=== PATIENT | male | born 1970 | race African-American/Black ===

== ENCOUNTER 2017-03-01 18:57 | Inpatient (IN) | payer BC, MEDICAID, OTHER ==
[~2017-03-01] VITALS: Ht 167.6 cm; Wt 93.9 kg
[~2017-03-01 18:57] MED LIST: CONTOUR1 XX; LEVEMIR SQ; NOVOLOGSS SQ; Z.0.LANCETS XX
[2017-03-01 19:00] VITALS: BP 182/93; PULSE 64; RESP 16; TEMP 99.2; O2SAT 99
--- NOTE | 2017-03-01 20:16 | PD ---
HPI Chief Complaint: Abdominal Pain Time Seen by Provider: 20:16 Travel History International Travel<30 days: No Contact w/Intl Traveler<30days: No Traveled to known affect area: No History of Present Illness HPI 46 year old male came to the emergency room with history of back pain and left flank area. Patient says this has been going on for past 3 days. He notices pancreatitis because he has had 2 previous flareups and they all feel the same way. He says he has been having fever and chills. His temperature in triage was 99.2. Pain worsens upon eating something. It does not radiate anywhere else. It say that all pain that is 9 out of 10. Patient seems uncomfortable and he does not want to answer to many questions. [facility] Past Medical History Narrative Medical List of his past medical, surgical, social and family history is reviewed from the nursing note. Asthma: Yes ( CHILD ) Blood Disorders: No Anxiety: No Depression: No Heart Rhythm Problems: No Cancer: No Cardiovascular Problems: No High Cholesterol: No Chemotherapy: No Chest Pain: Yes Congestive Heart Failure: No COPD: No Diabetes: Yes Patient Takes Glucophage: No Diminished Hearing: No Endocrine: No Genitourinary: No Immune Disorder: No Musculoskeletal: No Neurologic: No Psychiatric: No Reproductive: No Respiratory: No Pancreatitis: Yes Radiation Therapy: No Sleep Apnea: No Thyroid Disease: No Tetanus Vaccination: Never Vaccinated Influenza Vaccination: No Past Surgical History Surgical History: No Previous Surgery Social History Alcohol Use: No Tobacco Use: No Substance Use: No Allergies-Medications (Allergen,Severity, Reaction): Coded Allergies: iodine (Verified Allergy, Severe, 03/01/17) penicillin G (Unverified Allergy, Unknown, COUGHING, 12/19/16) Comments List of his allergies reviewed from the nursing note. Reported Meds & Prescriptions Reported Meds & Active Scripts Active Hydrocodone-Acetaminophen 5-325 mg Tab 1 Tab PO Q6H PRN Contour Blood Glucose Test Strip #100 (Blood Glucose Test Strips) Strp 1 Strip XX DIRECTED Narrative Medication List of his home medications reviewed from the nursing note. Review of Systems Except as stated in HPI: all other systems reviewed are Neg Gastrointestinal: Positive: Abdominal Pain Physical Exam Narrative GENERAL: Awake, alert, moderate distress SKIN: Focused skin assessment warm/dry. HEAD: Atraumatic. Normocephalic. EYES: Pupils equal and round. No scleral icterus. No injection or drainage. ENT: No nasal bleeding or discharge. Mucous membranes pink and moist. NECK: Trachea midline. No JVD. CARDIOVASCULAR: Regular rate and rhythm. No murmur appreciated. RESPIRATORY: No accessory muscle use. Clear to auscultation. Breath sounds equal bilaterally. GASTROINTESTINAL: Abdomen soft, non-tender, nondistended. Hepatic and splenic margins not palpable. MUSCULOSKELETAL: No obvious deformities. No clubbing. No cyanosis. No edema. NEUROLOGICAL: Awake and alert. No obvious cranial nerve deficits. Motor grossly within normal limits. Normal speech. PSYCHIATRIC: Appropriate mood and affect; insight and judgment normal. Data Data Last Documented VS Vital Signs Date Time Temp Pulse Resp B/P (MAP) Pulse Ox O2 Delivery O2 Flow Rate FiO2 03/01/17 22:58 74 18 148/66 (93) 98 03/01/17 20:45 Room Air 03/01/17 19:00 99.2 Orders Orders Complete Blood Count With Diff (03/01/17 20:19) Comprehensive Metabolic Panel (03/01/17 20:19) Lactic Acid Sepsis Protocol (03/01/17 20:19) Lipase (03/01/17 20:19) Urinalysis - C+S If Indicated (03/01/17 20:19) Influenzae A/B Antigen (03/01/17 20:19) Blood Culture (03/01/17 20:19) Chest, Single Ap (03/01/17 20:19) Blood Glucose (03/01/17 20:19) Ecg Monitoring (03/01/17 20:19) Iv Access Insert/Monitor (03/01/17 20:19) Oximetry (03/01/17 20:19) Oxygen Administration (03/01/17 20:19) Sodium Chlor 0.9% 1000 Ml Inj (Ns 1000 M (03/01/17 20:19) Sodium Chlor 0.9% 1000 Ml Inj (Ns 1000 M (03/01/17 20:19) Sodium Chlor 0.9% 1000 Ml Inj (Ns 1000 M (03/01/17 20:19) Ketorolac Inj (Toradol Inj) (03/01/17 20:30) Ct Abd/Pel W/O Iv Contrast (03/01/17 ) Ed Discharge Order (03/01/17 22:51) Admit Order (Ed Use Only) (03/01/17 23:11) Labs Laboratory Tests Test 03/01/17 20:50 03/01/17 21:10 White Blood Count 14.1 TH/MM3 Red Blood Count 4.95 MIL/MM3 Hemoglobin 14.7 GM/DL Hematocrit 43.8 % Mean Corpuscular Volume 88.5 FL Mean Corpuscular Hemoglobin 29.8 PG Mean Corpuscular Hemoglobin Concent 33.6 % Red Cell Distribution Width 14.2 % Platelet Count 217 TH/MM3 Mean Platelet Volume 8.1 FL Neutrophils (%) (Auto) 79.6 % Lymphocytes (%) (Auto) 10.9 % Monocytes (%) (Auto) 6.6 % Eosinophils (%) (Auto) 2.5 % Basophils (%) (Auto) 0.4 % Neutrophils # (Auto) 11.3 TH/MM3 Lymphocytes # (Auto) 1.5 TH/MM3 Monocytes # (Auto) 0.9 TH/MM3 Eosinophils # (Auto) 0.4 TH/MM3 Basophils # (Auto) 0.1 TH/MM3 CBC Comment DIFF FINAL Differential Comment Blood Urea Nitrogen 9 MG/DL Creatinine 0.83 MG/DL Random Glucose 108 MG/DL Total Protein 7.6 GM/DL Albumin 3.4 GM/DL Calcium Level 9.2 MG/DL Alkaline Phosphatase 40 U/L Aspartate Amino Transf (AST/SGOT) 16 U/L Alanine Aminotransferase (ALT/SGPT) 29 U/L Total Bilirubin 0.5 MG/DL Sodium Level 138 MEQ/L Potassium Level 3.8 MEQ/L Chloride Level 106 MEQ/L Carbon Dioxide Level 23.6 MEQ/L Anion Gap 8 MEQ/L Estimat Glomerular Filtration Rate 120 ML/MIN Lactic Acid Level 0.6 mmol/L Lipase 1460 U/L Urine Color YELLOW Urine Turbidity CLEAR Urine pH 6.5 Urine Specific [place] 1.026 Urine Protein TRACE mg/dL Urine Glucose (UA) NEG mg/dL Urine Ketones NEG mg/dL Urine Occult Blood NEG Urine Nitrite NEG Urine Bilirubin NEG Urine Urobilinogen LESS THAN 2.0 MG/DL Urine Leukocyte Esterase NEG Urine RBC LESS THAN 1 /hpf Urine WBC LESS THAN 1 /hpf Urine Squamous Epithelial Cells <1 /hpf Urine Amorphous Sediment RARE Urine Mucus FEW /lpf Microscopic Urinalysis Comment CATH-CULT NOT IND MDM Medical Decision Making Medical Screen Exam Complete: Yes Emergency Medical Condition: Yes Medical Record Reviewed: Yes Differential Diagnosis Acute pancreatitis, pyelonephritis, musculoskeletal pain Narrative Course 10:50 PM blood test results are back. Patient does have some leukocytosis but lactic acid was within normal limits. UA was within normal limits. Lipase was elevated. CT scan of the abdomen showed pancreatitis with mild inflammation of the pancreas. I reassessed the patient and he says his pain is better and would like to eat something. I recommended that he should only have clear liquid diet. Patient is comfortable going home. I'll discharge him. 11:11 PM patient's pain has started to come back and the nurse told me that he at this point wants to stay. I'm okay with that decision given the fact that his enzyme, CAT scan and white blood cell count supports that. I spoke with the hospitalist has accepted the patient. Procedures EKG Prior to Arrival: No Diagnosis Primary Impression: Acute pancreatitis Qualified Codes: K85.90 - Acute pancreatitis without necrosis or infection, unspecified Additional Impression: Leukocytosis Qualified Codes: D72.829 - Elevated white blood cell count, unspecified Referrals: Primary Care Physician 2 days Additional Instructions: Please return to the ER if the condition worsens or any other new concerns.. Clear liquid diet for next 48-72 hours and then slowly ease in to regular food starting with bland food first. Take the medication as per the prescription direction. Please have your primary care for you to a GI specialist for your recurrent pancreatitis workup. Med/Other Pt SpecificInfo: Prescription(s) given Scripts Hydrocodone-Acetaminophen (Hydrocodone-Acetaminophen) 5-325 mg Tab 1 TAB PO Q6H Y for PAIN, #15 TAB 0 Refills Prov: Ronda Hays MD 03/01/17 Disposition: 01 DISCHARGE HOME Condition: Stable Ronda Hays MD Mar 01, 2017 20:16
[2017-03-01] MEDS ORDERED: SODIUM CHLOR 0.9% 1000 ML INJ 700 ML IV ONE (20:19)
[2017-03-01] MEDS ORDERED: SODIUM CHLOR 0.9% 1000 ML INJ 1,000 ML IV ONE ×2 (20:19)
[2017-03-01] MEDS ORDERED: KETOROLAC TROMETHAMINE 30 MG/ML (IVP) VIAL IV PUSH ONE (20:30)
--- NOTE | 2017-03-01 20:34 | RADRPT ---
EXAM DATE/TIME: 03/01/2017 20:22 [facility] COMPARISON: No previous studies available for comparison. INDICATIONS : Fever MEDICAL HISTORY : Diabetes mellitus type II. Hypertension Asthma SURGICAL HISTORY : None. ENCOUNTER: Initial ACUITY: 1 day PAIN SCORE: 0/10 LOCATION: chest FINDINGS: A single view of the chest demonstrates the lungs to be symmetrically aerated without evidence of mas s, infiltrate or effusion. The cardiomediastinal contours are unremarkable. Osseous structures are intact. CONCLUSION: No acute disease. Alan Power MD on March 01, 2017 at 20:31 Board Certified Radiologist. This report was verified electronically.
[2017-03-01 20:45] VITALS: BP 165/100; PULSE 65; RESP 18; O2SAT 98
[2017-03-01 21:10] LABS: AUTOMATED NEUTROPHIL # 11.3 TH/MM3 (1.8-7.7); BASOPHIL # 0.1 TH/MM3 (0-0.2); BASOPHIL % 0.4 % (0.0-2.0); EOSINOPHIL # 0.4 TH/MM3 (0-0.4); EOSINOPHIL % 2.5 % (0.0-4.0); HEMATOCRIT 43.8 % (39.0-51.0); HEMO FLAGS DIFF FINAL; LYMPH % 10.9 % (9.0-44.0); LYMPHOCYTE # 1.5 TH/MM3 (1.0-4.8); MEAN CELL VOLUME 88.5 FL (80.0-100.0); MEAN CORPUSCULAR HEMOGLOBIN 29.8 PG (27.0-34.0); MEAN CORPUSCULAR HGB CONC 33.6 % (32.0-36.0); MONO % 6.6 % (0.0-8.0); NEUT % 79.6 % (16.0-70.0); PLATELET COUNT 217 TH/MM3 (150-450); RED BLOOD COUNT 4.95 MIL/MM3 (4.50-5.90); RED CELL DISTRIBUTION WIDTH 14.2 % (11.6-17.2); WHITE BLOOD COUNT 14.1 TH/MM3 (4.0-11.0)
[2017-03-01 21:28] LABS: ALT (GPT) 29 U/L (12-78); ANION GAP 8 MEQ/L (5-15); AST (GOT) 16 U/L (15-37); BICARBONATE 23.6 MEQ/L (21.0-32.0); BLOOD UREA NITROGEN 9 MG/DL (7-18); CHLORIDE 106 MEQ/L (98-107); GLOMERULAR FILTRATION RATE 120 ML/MIN (>89); POTASSIUM 3.8 MEQ/L (3.5-5.1); SODIUM (NA) 138 MEQ/L (136-145)
[2017-03-01 21:31] LABS: ALKALINE PHOSPHATASE 40 U/L (45-117); TOTAL BILIRUBIN ADULT 0.5 MG/DL (0.2-1.0)
[2017-03-01 21:36] LABS: BLOOD, URINE NEG (NEG); COMMENT (UR) CATH-CULT NOT IND; CULTURE IF INDICATED CATH CULTURE NOT IND; GLUCOSE,URINE NEG (NEG); KETONE, URINE NEG (NEG); MUCUS URINE FEW /lpf (OCC); NITRITE,URINE NEG (NEG); PH, URINE 6.5 (5.0-8.5); SQUAMOUS EPITHELIAL CELL URINE <1 /hpf (0-5); URINE COLOR YELLOW (YELLW/STRAW)
--- NOTE | 2017-03-01 22:35 | RADRPT ---
EXAM DATE/TIME: 03/01/2017 21:53 [facility] COMPARISON: No previous studies available for comparison. INDICATIONS : Left sided abdomen pain. ORAL CONTRAST: No oral contrast ingested. RADIATION DOSE: 13.81 CTDIvol (mGy) MEDICAL HISTORY : Diabetes mellitus type 2. Pancreatitis. SURGICAL HISTORY : None. ENCOUNTER: Initial ACUITY: 1 day PAIN SCALE: 7/10 LOCATION: Left abdomen TECHNIQUE: Volumetric scanning of the abdomen and pelvis was performed. Using automated exposure control and ad justment of the mA and/or kV according to patient size, radiation dose was kept as low as reasonably achievable to obtain optimal diagnostic quality images. DICOM format image data is available electro nically for review and comparison. FINDINGS: LOWER LUNGS: The visualized lower lungs are clear. LIVER: Homogeneous density without lesion. There is no dilation of the biliary tree. No calcified gallston es. SPLEEN: Normal size without lesion. PANCREAS: Mild inflammatory changes in and around the body and tail of pancreas. No evidence of mass or fluid c ollection. KIDNEYS: Normal in size and shape. There is no mass, stone, or hydronephrosis. ADRENAL GLANDS: Within normal limits. VASCULAR: There is no aortic aneurysm. BOWEL/MESENTERY: The stomach, small bowel, and colon demonstrate no acute abnormality. There is no free intraperitone al air or fluid. ABDOMINAL WALL: Within normal limits. RETROPERITONEUM: There is no lymphadenopathy. BLADDER: No wall thickening or mass. REPRODUCTIVE: Within normal limits. INGUINAL: There is no lymphadenopathy or hernia. MUSCULOSKELETAL: Within normal limits for patient age. CONCLUSION: Pancreatitis. Alan Power MD on March 01, 2017 at 22:32 Board Certified Radiologist. This report was verified electronically.
[2017-03-01] MEDS ORDERED: HYDR-3516 PO (22:50)
[2017-03-01 22:58] VITALS: BP 148/66
--- NOTE | 2017-03-01 23:13 | HHI.HP ---
HPI Service [facility] Primary Care Physician Unknown Admission Diagnosis acute pancreatitis, leukocytosis, intractable pain Diagnoses: (1) Pancreatitis Diagnosis: Principal (2) Leukocytosis Diagnosis: Principal (3) DM (diabetes mellitus) Diagnosis: Principal (4) HTN (hypertension) Diagnosis: Principal Travel History International Travel<30 Days: No Contact w/Intl Traveler <30 Da: No Traveled to Known Affected Are: No History of Present Illness This is a 46-year-old male with a PMH of DM and Recurrent Pancreatitis who presented to the ER with complaints of abdominal pain x3 days. Notes pain w/ radiation to back, states similar to previous episodes of pancreatitis. Reports subjective fever/chills at home, decreased PO intake due to symptoms. On arrival, BP 182/93, HR 64, O2 sat 99% on RA, Temp 99.2. WBC 14.1. Chemistry essentially unremarkable. Lipase 1460. UA negative. CXR with no acute findings. CT Abd/Pelvis w/ pancreatitis. Pt was to be d/c'd home, however persistent abdominal pain. Review of Systems Except as stated in HPI: all other systems reviewed are Neg ROS: 14 point review of systems otherwise negative. Past Family Social History Past Medical History PMH: DM and Recurrent Pancreatitis Past Surgical History PAST SURGICAL HISTORY: None Allergies: Coded Allergies: iodine (Verified Allergy, Severe, 03/01/17) penicillin G (Unverified Allergy, Unknown, COUGHING, 12/19/16) Family History PAST FAMILY HISTORY: Reviewed, positive for DM. Social History PAST SOCIAL HISTORY: Negative for alcohol, tobacco or drugs. Physical Exam Vital Signs Vital Signs Date Time Temp Pulse Resp B/P (MAP) Pulse Ox O2 Delivery O2 Flow Rate FiO2 03/01/17 22:58 74 18 148/66 (93) 98 03/01/17 20:45 98 Room Air 03/01/17 20:45 65 18 165/100 (121) 98 Room Air 03/01/17 19:00 99.2 64 16 182/93 (122) 99 Room Air Physical Exam PE: GENERAL: Middle-aged male in no acute distress. HEENT: PERRLA, EOMI. No scleral icterus or conjunctival pallor. No lid lag or facial droop. CARDIOVASCULAR: Regular rate and rhythm. No obvious murmurs to auscultation. No chest tenderness to palpation. RESPIRATORY: No obvious rhonchi or wheezing. Clear to auscultation. Breath sounds equal bilaterally. GASTROINTESTINAL: Abdomen soft, epigastric tenderness to palpation, nondistended. BS normal. MUSCULOSKELETAL: Extremities without clubbing, cyanosis, or edema. No obvious deformities. NEUROLOGICAL: Awake, alert and oriented x4. No focal neurologic deficits. Moving both upper and lower extremities spontaneously. Laboratory Laboratory Tests Test 03/01/17 20:50 03/01/17 21:10 White Blood Count 14.1 Red Blood Count 4.95 Hemoglobin 14.7 Hematocrit 43.8 Mean Corpuscular Volume 88.5 Mean Corpuscular Hemoglobin 29.8 Mean Corpuscular Hemoglobin Concent 33.6 Red Cell Distribution Width 14.2 Platelet Count 217 Mean Platelet Volume 8.1 Neutrophils (%) (Auto) 79.6 Lymphocytes (%) (Auto) 10.9 Monocytes (%) (Auto) 6.6 Eosinophils (%) (Auto) 2.5 Basophils (%) (Auto) 0.4 Neutrophils # (Auto) 11.3 Lymphocytes # (Auto) 1.5 Monocytes # (Auto) 0.9 Eosinophils # (Auto) 0.4 Basophils # (Auto) 0.1 CBC Comment DIFF FINAL Differential Comment Blood Urea Nitrogen 9 Creatinine 0.83 Random Glucose 108 Total Protein 7.6 Albumin 3.4 Calcium Level 9.2 Alkaline Phosphatase 40 Aspartate Amino Transf (AST/SGOT) 16 Alanine Aminotransferase (ALT/SGPT) 29 Total Bilirubin 0.5 Sodium Level 138 Potassium Level 3.8 Chloride Level 106 Carbon Dioxide Level 23.6 Anion Gap 8 Estimat Glomerular Filtration Rate 120 Lactic Acid Level 0.6 Lipase 1460 Urine Color YELLOW Urine Turbidity CLEAR Urine pH 6.5 Urine Specific [place] 1.026 Urine Protein TRACE Urine Glucose (UA) NEG Urine Ketones NEG Urine Occult Blood NEG Urine Nitrite NEG Urine Bilirubin NEG Urine Urobilinogen LESS THAN 2.0 Urine Leukocyte Esterase NEG Urine RBC LESS THAN 1 Urine WBC LESS THAN 1 Urine Squamous Epithelial Cells <1 Urine Amorphous Sediment RARE Urine Mucus FEW Microscopic Urinalysis Comment CATH-CULT NOT IND Date/Time Source Procedure Growth Status 03/01/17 20:50 Blood Peripheral Aerobic Blood Culture Pending Received 03/01/17 20:50 Blood Peripheral Anaerobic Blood Culture Pending Received 03/01/17 20:40 Nasal Aspirate Influenza Types A,B Antigen (AMBER) - Final NEGATIVE FOR FLU A AND B ANTIGEN.... Complete Result Diagram: 03/01/17204903/01/172049 Caprini VTE Risk Assessment Caprin VTE Risk Assessment: No/Low Risk (score <= 1) Caprini Risk Assessment Model Point Value = 1 Point Value = 2 Point Value = 3 Point Value = 5 Age 41-60 Minor surgery BMI > 25 kg/m2 Swollen legs Varicose veins or History of unexplained or recurrent spontaneous Oral contraceptives or hormone replacement Sepsis (< 1 month) Serious lung disease, including pneumonia (< 1 month) Abnormal pulmonary function Acute myocardial infarction Congestive heart failure (< 1 month) History of inflammatory bowel disease Medical patient at bed rest Age 61-74 Arthroscopic surgery Major open surgery (> 45 min) Laparoscopic surgery (> 45 min) Malignancy Confined to bed (> 72 hours) Immobilizing plaster cast Central venous access Age >= 75 History of VTE Family history of VTE Factor V Leiden Prothrombin [id number] Lupus anticoagulant Anticardiolipin antibodies Elevated serum homocysteine Heparin-induced thrombocytopenia Other congenital or acquired thrombophilia Stroke (< 1 month) Elective arthroplasty Hip, pelvis, or leg fracture Acute spinal cord injury (< 1 month) Prophylaxis Regimen Total Risk Factor Score Risk Level Prophylaxis Regimen 0-1 Low Early ambulation 2 Moderate Order ONE of the following: *Sequential Compression Device (SCD) *Heparin 5000 units SQ BID 3-4 Higher Order ONE of the following medications: *Heparin 5000 units SQ TID *Enoxaparin/Lovenox 40 mg SQ daily (WT < 150 kg, CrCl > 30 mL/min) *Enoxaparin/Lovenox 30 mg SQ daily (WT < 150 kg, CrCl > 10-29 mL/min) *Enoxaparin/Lovenox 30 mg SQ BID (WT < 150 kg, CrCl > 30 mL/min) AND/OR *Sequential Compression Device (SCD) 5 or more Highest Order ONE of the following medications: *Heparin 5000 units SQ TID (Preferred with Epidurals) *Enoxaparin/Lovenox 40 mg SQ daily (WT < 150 kg, CrCl > 30 mL/min) *Enoxaparin/Lovenox 30 mg SQ daily (WT < 150 kg, CrCl > 10-29 mL/min) *Enoxaparin/Lovenox 30 mg SQ BID (WT < 150 kg, CrCl > 30 mL/min) AND *Sequential Compression Device (SCD) Assessment and Plan Problem List: (1) Pancreatitis ICD Code: K85.90 - Acute pancreatitis without necrosis or infection, unspecified (2) Leukocytosis ICD Code: D72.829 - Elevated white blood cell count, unspecified Status: Acute (3) HTN (hypertension) ICD Code: I10 - Essential (primary) hypertension (4) DM (diabetes mellitus) ICD Code: E11.9 - Type 2 diabetes mellitus without complications Assessment and Plan A/P: 1. Pancreatitis: h/o Recurrent Pancreatitis, acute onset of abdominal pain w/ radiation to back approx 3 days ago, Lipase 1460, CT Abd/Pelvis w/ pancreatitis , images reviewed by me. Clear liquids, diet as tolerated, IVF, Pepcid IV, repeat Lipase in am. 2. Leukocytosis: WBC 14. Temp 99. CXR w/ no acute findings, images reviewed by me. U/a negative. Will hold antibiotics at the moment as no clear source. Repeat labs in am. 3. DM: H/o DM, Hgb A1c 08/31/14 14.9. BS 108. Check repeat Hgb A1c, sliding scale w/ Accu-Cheks. 4. HTN: BP 180's on arrival, likely compounded by abdominal pain, currently BP 140's. Will monitor. 5. DVT Prophylaxis: SCD/teds. 6. Social work for DC planning as needed. 7. Case discussed at length with ER physician. Physician Certification 2 Midnight Certification Type: Admission for Inpatient Services Order for Inpatient Services The services are ordered in accordance with Medicare regulations or non- Medicare payer requirements, as applicable. In the case of services not specified as inpatient-only, they are appropriately provided as inpatient services in accordance with the 2-midnight benchmark. Estimated LOS (days): 2 days is the estimated time the patient will need to remain in the hospital, assuming treatment plan goals are met and no additional complications. Post-Hospital Plan: Not yet determined Problem Qualifiers (1) Leukocytosis: Qualified Codes: D72.829 - Elevated white blood cell count, unspecified Lilibeth Farris MD Mar 01, 2017 23:13
[2017-03-01] MEDS ORDERED: BISACODYL 10 MG SUPP RECTAL PRN (23:15)
[2017-03-01] MEDS ORDERED: SODIUM CHLORIDE 0.9% FLUSH 10 ML FLUSH IV FLUSH PRN (23:15)
[2017-03-01] MEDS ORDERED: LACTULOSE SYRUP 20 GM/30 ML CUP PO PRN (23:15)
[2017-03-01] MEDS ORDERED: MAGNESIUM HYDROXIDE SUSP 30 ML CUP PO PRN (23:15)
[2017-03-01] MEDS ORDERED: DEXTROSE 50% IN WATER 50 ML VIAL(D50) IV PUSH PRN (23:15)
[2017-03-01] MEDS ORDERED: ACETAMINOPHEN 325 MG TAB PO PRN (23:15)
[2017-03-01] MEDS ORDERED: SENNOSIDES 8.6 MG TAB PO PRN (23:15)
[2017-03-01] MEDS ORDERED: GLUCAGON 1 MG/ML VIAL OTHER PRN (23:15)
[2017-03-01] MEDS: SODIUM CHLOR 0.9% 1000 ML INJ 1,000 ML IV SCH (23:32)
[2017-03-02] MEDS: FAMOTIDINE 20 MG/2 ML VIAL IV PUSH SCH ×3 (00:49→23:46)
[2017-03-02] MEDS: MORPHINE SULFATE 4 MG/ML INJ IV PUSH PRN ×5 (00:49→16:19)
[2017-03-02 01:35] VITALS: BP 166/86; PULSE 59; RESP 20; TEMP 99.4; O2SAT 97
[2017-03-02 04:25] VITALS: BP 136/68; PULSE 63; RESP 20; TEMP 98.7; O2SAT 96
[2017-03-02] MEDS: ONDANSETRON HCL 4 MG/2 ML VIAL IVP PRN ×3 (06:21→21:40)
[2017-03-02] MEDS: INSULIN ASPART SUPPLEMENTAL SCALE SQ SCH ×4 (07:41→21:00)
[2017-03-02 08:10] VITALS: BP 127/68; PULSE 72; RESP 19; TEMP 98.5; O2SAT 96
[2017-03-02] MEDS: SODIUM CHLORIDE 0.9% FLUSH 10 ML FLUSH IV FLUSH SCH ×2 (09:00→21:00)
[2017-03-02] MEDS: DOCUSATE SODIUM 50 MG/SENNA 8.6 MG TAB PO SCH ×2 (09:00→21:00)
[2017-03-02] MEDS: SODIUM CHLOR 0.9% 1000 ML INJ 1,000 ML IV SCH ×2 (09:09→09:52)
[2017-03-02 09:36] LABS: AUTOMATED NEUTROPHIL # 11.3 TH/MM3 (1.8-7.7); BASOPHIL # 0.1 TH/MM3 (0-0.2); BASOPHIL % 0.4 % (0.0-2.0); EOSINOPHIL # 0.3 TH/MM3 (0-0.4); EOSINOPHIL % 1.9 % (0.0-4.0); HEMATOCRIT 41.1 % (39.0-51.0); HEMO FLAGS DIFF FINAL; LYMPH % 9.3 % (9.0-44.0); LYMPHOCYTE # 1.3 TH/MM3 (1.0-4.8); MEAN CELL VOLUME 90.4 FL (80.0-100.0); MEAN CORPUSCULAR HEMOGLOBIN 30.5 PG (27.0-34.0); MEAN CORPUSCULAR HGB CONC 33.7 % (32.0-36.0); MONO % 7.7 % (0.0-8.0); NEUT % 80.7 % (16.0-70.0); PLATELET COUNT 196 TH/MM3 (150-450); RED BLOOD COUNT 4.55 MIL/MM3 (4.50-5.90); RED CELL DISTRIBUTION WIDTH 14.2 % (11.6-17.2)
[2017-03-02 09:53] LABS: ANION GAP 9 MEQ/L (5-15); AST (GOT) 15 U/L (15-37); BICARBONATE 23.1 MEQ/L (21.0-32.0); BLOOD UREA NITROGEN 8 MG/DL (7-18); CHLORIDE 106 MEQ/L (98-107); GLOMERULAR FILTRATION RATE 127 ML/MIN (>89); POTASSIUM 3.5 MEQ/L (3.5-5.1); SODIUM (NA) 138 MEQ/L (136-145)
[2017-03-02 09:55] LABS: ALT (GPT) 26 U/L (12-78)
[2017-03-02 09:56] LABS: ALKALINE PHOSPHATASE 35 U/L (45-117); TOTAL BILIRUBIN ADULT 0.7 MG/DL (0.2-1.0)
[2017-03-02 11:56] VITALS: BP 137/84; PULSE 73; RESP 20; TEMP 98.6; O2SAT 97
[2017-03-02] MEDS: ACETAMINOPHEN/HYDROcodone 325 MG/5 MG TAB PO PRN ×3 (13:14→21:26)
[2017-03-02 15:05] LABS: HEMOGLOBIN A1a 0.9 %; HEMOGLOBIN A1b 0.8 %; HEMOGLOBIN Ao 85.9 %; HEMOGLOBIN F 1.3 %; HEMOGLOBIN LA1C 1.8 %; HEMOGLOBIN P3 3.4 %
[2017-03-02 16:21] VITALS: BP 133/76; PULSE 71; RESP 20; TEMP 99.2; O2SAT 96
--- NOTE | 2017-03-02 16:21 | HHI.PR ---
Subjective Remarks Follow-up pancreatitis. Patient states that his abdominal pain has improved. He did have nausea and vomiting when trying to have a small amount of broth earlier today. Objective Vitals Vital Signs Date Time Temp Pulse Resp B/P (MAP) Pulse Ox O2 Delivery O2 Flow Rate FiO2 03/02/17 11:56 98.6 73 20 137/84 (101) 97 03/02/17 08:10 98.5 72 19 127/68 (87) 96 03/02/17 04:25 98.7 63 20 136/68 (90) 96 03/02/17 01:35 99.4 59 20 166/86 (112) 97 03/01/17 22:58 74 18 148/66 (93) 98 03/01/17 20:45 98 Room Air 03/01/17 20:45 65 18 165/100 (121) 98 Room Air 03/01/17 19:00 99.2 64 16 182/93 (122) 99 Room Air I/O 03/01/17 03/01/17 03/01/17 03/02/17 03/02/17 03/02/17 07:00 15:00 23:00 07:00 15:00 23:00 Intake Total 480 ml Output Total 200 ml Balance -200 ml 480 ml Intake Oral 480 ml Output Urine Total 200 ml Result Diagram: 03/02/1710 03/02/17909 Imaging Last Impressions Chest X-Ray 03/01/17 2019 Signed Impressions: Service Date/Time: February 20:22 - CONCLUSION: No acute disease. Alan Power MD Abdomen/Pelvis CT 03/01/17 0000 Signed Impressions: Service Date/Time: February 21:53 - CONCLUSION: Pancreatitis. Alan Power MD Objective Remarks General: No acute distress. Heart: Regular rate and rhythm. No murmur. Lungs: Clear to auscultation bilaterally. No wheezes, rales, or rhonchi. Breathing is nonlabored. Abdomen: Soft, nontender, nondistended. Extremities: No lower extremity edema. Psych: Alert and oriented. Procedures None Urinary Catheter: No Vascular Central Line Catheter: No A/P Problem List: (1) Pancreatitis ICD Code: K85.90 - Acute pancreatitis without necrosis or infection, unspecified (2) Leukocytosis ICD Code: D72.829 - Elevated white blood cell count, unspecified Status: Acute (3) HTN (hypertension) ICD Code: I10 - Essential (primary) hypertension (4) DM (diabetes mellitus) ICD Code: E11.9 - Type 2 diabetes mellitus without complications Assessment and Plan 1. Acute pancreatitis: Patient has history of recurrent pancreatitis. Uncertain etiology. Lipase trending down. Pain improving. Continue clear liquid diet, IV fluids, pain control. 2. Leukocytosis: WBC stable at 14. Possibly reactive secondary to pancreatitis. Monitor labs. 3. Diabetes mellitus: Hemoglobin A1c 5.5. Was 14.9 in August 2014. Monitor Accu- Cheks and cover with sliding scale insulin. 4. Hypertension: Blood pressure likely elevated on arrival secondary to abdominal pain. 5. DVT prophylaxis: ANITA Niño. Problem Qualifiers (1) Leukocytosis: Qualified Codes: D72.829 - Elevated white blood cell count, unspecified Lester Navarro MD Mar 02, 2017 16:21
[2017-03-02] MEDS: NS + KCL 20 MEQ INJ 1,000 ML IV SCH (17:02)
[2017-03-02 20:00] VITALS: BP 126/60; PULSE 64; RESP 18; TEMP 98.6; O2SAT 96
[2017-03-03] VITALS: BP 132/69; PULSE 65; RESP 18; TEMP 99.4; O2SAT 97
[2017-03-03] MEDS: NS + KCL 20 MEQ INJ 1,000 ML IV SCH (03:07)
[2017-03-03] MEDS: ACETAMINOPHEN/HYDROcodone 325 MG/5 MG TAB PO PRN (03:11)
[2017-03-03 04:00] VITALS: BP 133/76; PULSE 73; RESP 18; TEMP 98.8; O2SAT 96
[2017-03-03] MEDS: INSULIN ASPART SUPPLEMENTAL SCALE SQ SCH (08:00)
[2017-03-03 08:07] VITALS: BP 125/72; PULSE 62; RESP 18; TEMP 98.4; O2SAT 98
[2017-03-03] MEDS: SODIUM CHLORIDE 0.9% FLUSH 10 ML FLUSH IV FLUSH SCH (08:12)
[2017-03-03] MEDS: DOCUSATE SODIUM 50 MG/SENNA 8.6 MG TAB PO SCH (08:12)
[2017-03-03 09:11] LABS: AUTOMATED NEUTROPHIL # 8.8 TH/MM3 (1.8-7.7); BASOPHIL # 0.1 TH/MM3 (0-0.2); BASOPHIL % 0.6 % (0.0-2.0); EOSINOPHIL # 0.4 TH/MM3 (0-0.4); EOSINOPHIL % 3.4 % (0.0-4.0); HEMATOCRIT 38.1 % (39.0-51.0); HEMO FLAGS DIFF FINAL; LYMPH % 14.8 % (9.0-44.0); LYMPHOCYTE # 1.7 TH/MM3 (1.0-4.8); MEAN CELL VOLUME 90.2 FL (80.0-100.0); MEAN CORPUSCULAR HEMOGLOBIN 30.3 PG (27.0-34.0); MEAN CORPUSCULAR HGB CONC 33.6 % (32.0-36.0); MONO % 6.9 % (0.0-8.0); NEUT % 74.3 % (16.0-70.0); PLATELET COUNT 194 TH/MM3 (150-450); RED BLOOD COUNT 4.22 MIL/MM3 (4.50-5.90); RED CELL DISTRIBUTION WIDTH 14.4 % (11.6-17.2); WHITE BLOOD COUNT 11.8 TH/MM3 (4.0-11.0)
[2017-03-03 09:44] LABS: BICARBONATE 25.3 MEQ/L (21.0-32.0); POTASSIUM 3.6 MEQ/L (3.5-5.1)
--- NOTE | 2017-03-03 10:07 | HHI.DCPOC ---
Discharge Care Plan Diagnosis: (1) Acute pancreatitis (2) Leukocytosis (3) HTN (hypertension) (4) DM (diabetes mellitus) Goals to Promote Your Health * To prevent worsening of your condition and complications * To maintain your health at the optimal level Directions to Meet Your Goals Take your medications as prescribed Follow your dietary instruction Follow activity as directed Keep your appointments as scheduled Take your immunizations and boosters as scheduled If your symptoms worsen call your PCP, if no PCP go to Urgent Care Center or Emergency Room Smoking is Dangerous to Your Health. Avoid second hand smoke Call the 24-hour hour crisis hotline for domestic abuse at Neeta Wheeler Mar 03, 2017 10:07
--- NOTE | 2017-03-03 10:25 | HHI.PR ---
Subjective Remarks Follow up pancreatitis. Patient states that he feels much better. No abdominal pain. Tolerated heart healthy diet for breakfast. No nausea/vomiting. Wants to go home. Objective Vitals Vital Signs Date Time Temp Pulse Resp B/P (MAP) Pulse Ox O2 Delivery O2 Flow Rate FiO2 03/03/17 08:07 98.4 62 18 125/72 (89) 98 03/03/17 04:00 98.8 73 18 133/76 (95) 96 03/03/17 00:00 99.4 65 18 132/69 (90) 97 03/02/17 20:00 98.6 64 18 126/60 (82) 96 03/02/17 16:21 99.2 71 20 133/76 (95) 96 03/02/17 11:56 98.6 73 20 137/84 (101) 97 I/O 03/02/17 03/02/17 03/02/17 03/03/17 03/03/17 03/03/17 07:00 15:00 23:00 07:00 15:00 23:00 Intake Total 480 ml 360 ml 1000 ml Output Total 200 ml 350 ml Balance -200 ml 480 ml 10 ml 1000 ml Intake Oral 480 ml 360 ml IV Total 1000 ml Output Urine Total 200 ml 350 ml # Voids 3 Result Diagram: 03/03/1785003/03/17850 Imaging Last Impressions Chest X-Ray 03/01/17 2019 Signed Impressions: Service Date/Time: February 20:22 - CONCLUSION: No acute disease. Alan Power MD Abdomen/Pelvis CT 03/01/17 0000 Signed Impressions: Service Date/Time: February 21:53 - CONCLUSION: Pancreatitis. Alan Power MD Objective Remarks General: No acute distress. Heart: Regular rate and rhythm. No murmur. Lungs: Clear to auscultation bilaterally. No wheezes, rales, or rhonchi. Breathing is nonlabored. Abdomen: Soft, nontender, nondistended. Extremities: No lower extremity edema. Psych: Alert and oriented. Procedures None Urinary Catheter: No Vascular Central Line Catheter: No A/P Problem List: (1) Pancreatitis ICD Code: K85.90 - Acute pancreatitis without necrosis or infection, unspecified (2) Leukocytosis ICD Code: D72.829 - Elevated white blood cell count, unspecified Status: Acute (3) HTN (hypertension) ICD Code: I10 - Essential (primary) hypertension (4) DM (diabetes mellitus) ICD Code: E11.9 - Type 2 diabetes mellitus without complications Assessment and Plan 1. Acute pancreatitis: Patient has history of recurrent pancreatitis. Uncertain etiology. Lipase within normal limits. Pain resolved. Advanced to heart healthy diet. 2. Leukocytosis: WBC stable at 14. Possibly reactive secondary to pancreatitis. Monitor labs. 3. Diabetes mellitus: Hemoglobin A1c 5.5. Was 14.9 in August 2014. Monitor Accu- Cheks and cover with sliding scale insulin. 4. Hypertension: Blood pressure likely elevated on arrival secondary to abdominal pain. 5. DVT prophylaxis: ANITA Niño. Discharge Planning Discharge home in stable condition. The patient will follow up with his PCP for referral to GI. Heart healthy, diabetic diet. Activity as tolerated. Problem Qualifiers (1) Leukocytosis: Qualified Codes: D72.829 - Elevated white blood cell count, unspecified (2) HTN (hypertension): Qualified Codes: I10 - Essential (primary) hypertension Lester Navarro MD Mar 03, 2017 10:25
== END 2017-03-03 12:14 | disposition home or self-care (01) | DRG 440 ==
LOC: NEPC 18:57 → NEDA 23:11 → N05B 23:52
PROVIDERS: ADMIT Family Medicine; ATTEND Family Medicine
DX: K85.90 Acute pancreatitis without necrosis or infection, unspecified (principal); I10 Essential (primary) hypertension; E11.9 Type 2 diabetes mellitus without complications; D72.829 Elevated white blood cell count, unspecified
CPT/HCPCS: 71010; 74176; 80048; 80053; 80061; 81001; 82948; 83036; 83605; 83690; 85025; 87040; 87804; 96361; 96374; J1885; J2270; J2405; J3480; J7030

== ENCOUNTER 2017-07-18 08:01 | Inpatient (IN) | payer BC ==
[~2017-07-18] VITALS: Ht 167.6 cm; Wt 74.0 kg
[~2017-07-18 08:01] MED LIST changes: -CONTOUR1 XX; +HYDR-3516 PO; -LEVEMIR SQ; -NOVOLOGSS SQ; -Z.0.LANCETS XX
[2017-07-18 08:05] VITALS: BP 172/89; PULSE 80; RESP 15; TEMP 97.8; O2SAT 99
[2017-07-18 08:17] VITALS: BP 179/94; PULSE 78; RESP 18; O2SAT 99
[2017-07-18] MEDS ORDERED: SODIUM CHLOR 0.9% 1000 ML INJ 1,000 ML IV SCH (08:22)
--- NOTE | 2017-07-18 08:27 | PD ---
HPI Chief Complaint: GI Complaint Time Seen by Provider: 08:21 Travel History International Travel<30 days: No Contact w/Intl Traveler<30days: No Traveled to known affect area: No History of Present Illness HPI 47-year-old male complains of abdominal pain, nausea vomiting. Patient states that symptoms started yesterday. Patient states that abdominal pain and cramping pain localized upper abdomen. Patient denies any pain radiation. Patient denies any earache sore throat. Patient states that he has intermittent dry cough. Patient denies dysuria frequency. Patient denies any fever chills. Patient denies any back pain. Patient has history of hepatitis in the past. Patient also has history of diabetes diet-controlled. On a scale of 1-10 the pain is a 6. PFSH Past Medical History Asthma: Yes ( CHILD ) Blood Disorders: No Anxiety: No Depression: No Heart Rhythm Problems: No Cancer: No Cardiovascular Problems: No High Cholesterol: No Chemotherapy: No Chest Pain: Yes Congestive Heart Failure: No COPD: No Diabetes: Yes (diet and exercise controlled) Patient Takes Glucophage: No Diminished Hearing: No Endocrine: Yes Genitourinary: No Immune Disorder: No Musculoskeletal: No Neurologic: No Psychiatric: No Reproductive: No Respiratory: Yes Pancreatitis: Yes Radiation Therapy: No Sleep Apnea: No Thyroid Disease: No Past Surgical History Surgical History: No Previous Surgery Other Surgery: No Social History Alcohol Use: No Tobacco Use: No Substance Use: No Allergies-Medications (Allergen,Severity, Reaction): Coded Allergies: iodine (Verified Allergy, Severe, 07/18/17) shellfish derived (Verified Allergy, Severe, respiratory distress, 07/18/17 ) penicillin G (Unverified Allergy, Unknown, COUGHING, 07/18/17) Reported Meds & Prescriptions Reported Meds & Active Scripts Active Hydrocodone-Acetaminophen 5-325 mg Tab 1 Tab PO Q6H PRN Review of Systems General / Constitutional: No: Fever Eyes: No: Visual changes HENT: No: Headaches Cardiovascular: No: Chest Pain or Discomfort Respiratory: No: Shortness of Breath Gastrointestinal: Positive: Nausea, Vomiting, Abdominal Pain Genitourinary: No: Dysuria Musculoskeletal: No: Pain Skin: No Rash Neurologic: No: Weakness Psychiatric: No: Depression Endocrine: No: Polydipsia Hematologic/Lymphatic: No: Easy Bruising Physical Exam Narrative GENERAL: Well-nourished, well-developed patient. SKIN: Focused skin assessment warm/dry. HEAD: Normocephalic. EYES: No scleral icterus. No injection or drainage. NECK: Supple, trachea midline. No JVD or lymphadenopathy. CARDIOVASCULAR: Regular rate and rhythm without murmurs, gallops, or rubs. RESPIRATORY: Breath sounds equal bilaterally. No accessory muscle use. GASTROINTESTINAL: Abdomen soft, nondistended. Patient has moderate tenderness on palpation epigastric and left upper quadrant of the abdomen. No rebound tenderness. No mass. MUSCULOSKELETAL: No cyanosis, or edema. BACK: Nontender without obvious deformity. No CVA tenderness. Neurologic exam normal. Data Data Last Documented VS Vital Signs Date Time Temp Pulse Resp B/P (MAP) Pulse Ox O2 Delivery O2 Flow Rate FiO2 07/18/17 08:17 78 18 179/94 (122) 99 Room Air 07/18/17 08:05 97.8 Orders Orders Complete Blood Count With Diff (07/18/17 08:22) Comprehensive Metabolic Panel (07/18/17 08:22) Lipase (07/18/17 08:22) Prothrombin Time / Inr (Pt) (07/18/17 08:22) Act Partial Throm Time (Ptt) (07/18/17 08:22) Urinalysis - C+S If Indicated (07/18/17 08:22) Ct Abd/Pel W/O Iv Contrast (07/18/17 08:22) Iv Access Insert/Monitor (07/18/17 08:22) Ecg Monitoring (07/18/17 08:22) Oximetry (07/18/17 08:22) Morphine Inj (Morphine Inj) (07/18/17 08:30) Ondansetron Inj (Zofran Inj) (07/18/17 08:30) Sodium Chlor 0.9% 1000 Ml Inj (Ns 1000 M (07/18/17 08:22) Sodium Chloride 0.9% Flush (Ns Flush) (07/18/17 08:30) Famotidine Inj (Pepcid Inj) (07/18/17 08:30) Labs Laboratory Tests Test 07/18/17 08:25 07/18/17 10:50 White Blood Count 17.4 TH/MM3 Red Blood Count 5.18 MIL/MM3 Hemoglobin 15.6 GM/DL Hematocrit 46.2 % Mean Corpuscular Volume 89.3 FL Mean Corpuscular Hemoglobin 30.1 PG Mean Corpuscular Hemoglobin Concent 33.7 % Red Cell Distribution Width 14.3 % Platelet Count 228 TH/MM3 Mean Platelet Volume 8.3 FL Neutrophils (%) (Auto) 86.7 % Lymphocytes (%) (Auto) 7.1 % Monocytes (%) (Auto) 5.7 % Eosinophils (%) (Auto) 0.3 % Basophils (%) (Auto) 0.2 % Neutrophils # (Auto) 15.1 TH/MM3 Lymphocytes # (Auto) 1.2 TH/MM3 Monocytes # (Auto) 1.0 TH/MM3 Eosinophils # (Auto) 0.0 TH/MM3 Basophils # (Auto) 0.0 TH/MM3 CBC Comment DIFF FINAL Differential Comment Prothrombin Time 11.3 SEC Prothromb Time International Ratio 1.1 RATIO Activated Partial Thromboplast Time 25.7 SEC Blood Urea Nitrogen 11 MG/DL Creatinine 0.99 MG/DL Random Glucose 148 MG/DL Total Protein 8.7 GM/DL Albumin 3.6 GM/DL Calcium Level 8.7 MG/DL Alkaline Phosphatase 48 U/L Aspartate Amino Transf (AST/SGOT) 18 U/L Alanine Aminotransferase (ALT/SGPT) 27 U/L Total Bilirubin 0.8 MG/DL Sodium Level 136 MEQ/L Potassium Level 3.9 MEQ/L Chloride Level 99 MEQ/L Carbon Dioxide Level 26.6 MEQ/L Anion Gap 10 MEQ/L Estimat Glomerular Filtration Rate 98 ML/MIN Lipase 534 U/L MDM Medical Decision Making Medical Screen Exam Complete: Yes Emergency Medical Condition: Yes Interpretation(s) Last Impressions Abdomen/Pelvis CT 07/18/17821 Signed Impressions: Service Date/Time: Tuesday, July 18, 2017 08:41 - CONCLUSION: 1. Mild acute pancreatitis. Findings similar to February 2017. Jose Caruso MD 11:28 AM. CBC WBC 17.4. 86 neutrophil. CMP within normal limits. Lipase 534. Differential Diagnosis Differential diagnosis including gastritis, PUD, pancreatitis, cholecystitis, colitis, UTI, pyelonephritis, nephrolithiasis. Narrative Course 47-year-old male with epigastric and left upper quadrant abdominal pain. History of pancreatitis. Normal saline solution 1 25 cc an hour. Pepcid 20 mg IV. Morphine 2 mg IV. Zofran 4 mg IV. Diagnosis Primary Impression: Acute pancreatitis Qualified Codes: K85.90 - Acute pancreatitis without necrosis or infection, unspecified Admitting Information Admitting Physician Requests: Observation Mak Chatterjee MD Jul 18, 2017 08:27
[2017-07-18] MEDS ORDERED: FAMOTIDINE 20 MG/2 ML VIAL IV PUSH ONE (08:30)
[2017-07-18] MEDS ORDERED: SODIUM CHLORIDE 0.9% FLUSH 10 ML FLUSH IV FLUSH PRN ×2 (08:30→13:00)
[2017-07-18] MEDS ORDERED: MORPHINE SULFATE 4 MG/ML INJ IV PUSH ONE (08:30)
[2017-07-18] MEDS ORDERED: ONDANSETRON HCL 4 MG/2 ML VIAL IVP ONE (08:30)
[2017-07-18 08:54] LABS: AUTOMATED NEUTROPHIL # 15.1 TH/MM3 (1.8-7.7); BASOPHIL % 0.2 % (0.0-2.0); EOSINOPHIL % 0.3 % (0.0-4.0); HEMATOCRIT 46.2 % (39.0-51.0); HEMOGLOBIN 15.6 GM/DL (13.0-17.0); LYMPH % 7.1 % (9.0-44.0); LYMPHOCYTE # 1.2 TH/MM3 (1.0-4.8); MEAN CELL VOLUME 89.3 FL (80.0-100.0); MEAN CORPUSCULAR HEMOGLOBIN 30.1 PG (27.0-34.0); MEAN CORPUSCULAR HGB CONC 33.7 % (32.0-36.0); MEAN PLATELET VOLUME 8.3 FL (7.0-11.0); MONO % 5.7 % (0.0-8.0); NEUT % 86.7 % (16.0-70.0); PLATELET COUNT 228 TH/MM3 (150-450); RED BLOOD COUNT 5.18 MIL/MM3 (4.50-5.90); RED CELL DISTRIBUTION WIDTH 14.3 % (11.6-17.2); WHITE BLOOD COUNT 17.4 TH/MM3 (4.0-11.0)
[2017-07-18 09:05] LABS: INTERNATIONAL NORMALIZED RATIO 1.1 RATIO; PROTHROMBIN TIME - PATIENT 11.3 SEC (9.8-11.6)
[2017-07-18 09:12] LABS: ALBUMIN 3.6 GM/DL (3.4-5.0); AST (GOT) 18 U/L (15-37); BICARBONATE 26.6 MEQ/L (21.0-32.0); BLOOD UREA NITROGEN 11 MG/DL (7-18); CALCIUM 8.7 MG/DL (8.5-10.1); CHLORIDE 99 MEQ/L (98-107); CREATININE 0.99 MG/DL (0.60-1.30); GLOMERULAR FILTRATION RATE 98 ML/MIN (>89); GLUCOSE,RANDOM 148 MG/DL (74-106); SODIUM (NA) 136 MEQ/L (136-145)
[2017-07-18 09:14] LABS: ALT (GPT) 27 U/L (12-78)
[2017-07-18 09:15] LABS: ALKALINE PHOSPHATASE 48 U/L (45-117); TOTAL BILIRUBIN ADULT 0.8 MG/DL (0.2-1.0); TOTAL PROTEIN 8.7 GM/DL (6.4-8.2)
--- NOTE | 2017-07-18 09:35 | RADRPT ---
EXAM DATE/TIME: 07/18/2017 08:41 [facility] COMPARISON: None. INDICATIONS : <<Upper abdominal pain, nausea and vomiting.>> ORAL CONTRAST: No oral contrast ingested. RADIATION DOSE: <<17.11>> CTDIvol (mGy) MEDICAL HISTORY : Cardiovascular disease. Pancreatitis. Diabetes mellitus type 2. SURGICAL HISTORY : None. ENCOUNTER: Initial ACUITY: 1 day PAIN SCALE: 4/10 LOCATION: upper abdomen TECHNIQUE: Volumetric scanning of the abdomen and pelvis was performed. Using automated exposure control and ad justment of the mA and/or kV according to patient size, radiation dose was kept as low as reasonably achievable to obtain optimal diagnostic quality images. DICOM format image data is available electro nically for review and comparison. FINDINGS: Lung bases are clear. Within the abdomen there is some ending of fat around the pancreas characteristic of acute pancreatit is. Findings are similar to February 2017. No acute findings in the spleen, liver, adrenals, kidneys. No calcified gallstones identified. No jamila iary ductal dilatation. No pelvic mass or free fluid. Appendix normal. CONCLUSION: 1. Mild acute pancreatitis. Findings similar to February 2017. Jose Caruso MD on July 18, 2017 at 9:30 Board Certified Radiologist. This report was verified electronically.
[2017-07-18 11:00] VITALS: BP 171/89; PULSE 78; RESP 21; O2SAT 97
[2017-07-18] MEDS ORDERED: MORPHINE SULFATE 2 MG/ML INJ IV PUSH ONE (11:45)
[2017-07-18] MEDS ORDERED: KETOROLAC TROMETHAMINE 30 MG/ML (IVP) VIAL IV PUSH ONE (11:45)
[2017-07-18 11:55] LABS: BACTERIA, URINE RARE /hpf; BILIRUBIN, URINE NEG (NEG); BLOOD, URINE NEG (NEG); GLUCOSE,URINE 300 mg/dL (NEG); KETONE, URINE 150 mg/dL (NEG); MUCUS URINE FEW /lpf (OCC); NITRITE,URINE NEG (NEG); PH, URINE 6.5 (5.0-8.5); URINE COLOR YELLOW (YELLW/STRAW); URINE LEUKOCYTE ESTERASE NEG (NEG)
[2017-07-18 12:32] VITALS: O2SAT 99
[2017-07-18] MEDS ORDERED: DEXTROSE 50% IN WATER 50 ML VIAL(D50) IV PUSH PRN (13:00)
[2017-07-18] MEDS ORDERED: MORPHINE SULFATE 2 MG/ML INJ IM PRN (13:00)
[2017-07-18] MEDS ORDERED: GLUCAGON 1 MG/ML VIAL OTHER PRN (13:00)
[2017-07-18] MEDS ORDERED: KETOROLAC TROMETHAMINE 30 MG/ML (IVP) VIAL IVP PRN ×2 (13:00→18:00)
[2017-07-18] MEDS: ENOXAPARIN SODIUM 40 MG/0.4 ML SYRINGE SQ SCH (13:55)
[2017-07-18] MEDS: SODIUM CHLOR 0.9% 1000 ML INJ 1,000 ML IV SCH ×2 (13:56→21:31)
[2017-07-18 14:21] LABS: ALBUMIN 3.2 GM/DL (3.4-5.0); AST (GOT) 18 U/L (15-37); BICARBONATE 23.5 MEQ/L (21.0-32.0); BLOOD UREA NITROGEN 10 MG/DL (7-18); CALCIUM 8.8 MG/DL (8.5-10.1); CHLORIDE 103 MEQ/L (98-107); CREATININE 0.95 MG/DL (0.60-1.30); GLOMERULAR FILTRATION RATE 103 ML/MIN (>89); GLUCOSE,RANDOM 128 MG/DL (74-106); SODIUM (NA) 137 MEQ/L (136-145)
[2017-07-18 14:22] LABS: ALT (GPT) 25 U/L (12-78)
[2017-07-18 14:26] LABS: ALKALINE PHOSPHATASE 42 U/L (45-117); TOTAL BILIRUBIN ADULT 0.6 MG/DL (0.2-1.0); TOTAL PROTEIN 7.8 GM/DL (6.4-8.2); TRIGLYCERIDES 39 MG/DL (42-150)
[2017-07-18] MEDS ORDERED: cloNIDine HCL 0.1 MG TAB PO PRN (14:45)
--- NOTE | 2017-07-18 15:22 | PD.CONS ---
HPI History of Present Illness This is a 47 year old presented to the emergency department on 07/18/17 a.m. with complaints of nausea, vomiting, and upper mid abdominal pain. Symptoms 24 hours ago as a mid abdominal cramping pain radiates around to the left lower back. Resting ice pack on his left lower back and states that it has helped his abdominal pain. The patient continues to have moderate uncontrolled pain and occasional dry cough. Currently patient denies any vomiting, no dysphagia, no hematemesis or rectal bleeding. According to patient he has had pancreatitis in the past first episode was in [place] 5 years ago, second episode was one year ago February 2017, and again this hospital stay. Current lipase level is 534, initial alkaline phosphatase 48 now 42, elevated glucose level now 128 patient is known diabetic, PT INR 1.1, albumin 3.2. Current hemoglobin 15.6, WBC count 17.4. Patient has no history of colonoscopy or endoscopy. (Viki Ohara) PFSH Past Medical History Diabetes type 2 diet and exercise control, Child and asthma Previous pancreatitis attacks 2 Past Surgical History None (Viki Ohara) Coded Allergies: iodine (Verified Allergy, Severe, 07/18/17) shellfish derived (Verified Allergy, Severe, respiratory distress, 07/18/17 ) penicillin G (Unverified Allergy, Unknown, COUGHING, 07/18/17) Medications Administered Medications Medications (Trade) Dose Ordered Sig/Aixa Route PRN Reason Start Time Stop Time Status Last Admin Dose Admin Sodium Chloride 1,000 ml @ 114 mls/hr [id number] IV 07/18/17 13:00 07/18/17 13:56 Enoxaparin Sodium (Lovenox Inj) 40 mg Q24H SQ 07/18/17 13:00 07/18/17 13:55 Family History No known family history of colon cancer Social History Denies any tobacco, alcohol, or illicit drugs Patient is (Viki Ohara) Review of Systems Constitutional: COMPLAINS OF: Chills Gastrointestinal: COMPLAINS OF: Abdominal pain, Constipation (Viki Ohara) GI Exam Vitals I&O Vital Signs Date Time Temp Pulse Resp B/P (MAP) Pulse Ox O2 Delivery O2 Flow Rate FiO2 07/18/17 12:32 99 21 07/18/17 11:00 78 21 171/89 (116) 97 Room Air 07/18/17 08:17 78 18 179/94 (122) 99 Room Air 07/18/17 08:05 97.8 80 15 172/89 (116) 99 Imaging Last Impressions Abdomen/Pelvis CT 07/18/17 0822 Signed Impressions: Service Date/Time: Tuesday, July 18, 2017 08:41 - CONCLUSION: 1. Mild acute pancreatitis. Findings similar to February 2017. Jose Caruso MD Laboratory Test 07/18/17 08:25 07/18/17 10:50 07/18/17 13:39 White Blood Count 17.4 TH/MM3 Red Blood Count 5.18 MIL/MM3 Hemoglobin 15.6 GM/DL Hematocrit 46.2 % Mean Corpuscular Volume 89.3 FL Mean Corpuscular Hemoglobin 30.1 PG Mean Corpuscular Hemoglobin Concent 33.7 % Red Cell Distribution Width 14.3 % Platelet Count 228 TH/MM3 Mean Platelet Volume 8.3 FL Neutrophils (%) (Auto) 86.7 % Lymphocytes (%) (Auto) 7.1 % Monocytes (%) (Auto) 5.7 % Eosinophils (%) (Auto) 0.3 % Basophils (%) (Auto) 0.2 % Neutrophils # (Auto) 15.1 TH/MM3 Lymphocytes # (Auto) 1.2 TH/MM3 Monocytes # (Auto) 1.0 TH/MM3 Eosinophils # (Auto) 0.0 TH/MM3 Basophils # (Auto) 0.0 TH/MM3 CBC Comment DIFF FINAL Differential Comment Prothrombin Time 11.3 SEC Prothromb Time International Ratio 1.1 RATIO Activated Partial Thromboplast Time 25.7 SEC Blood Urea Nitrogen 11 MG/DL 10 MG/DL Creatinine 0.99 MG/DL 0.95 MG/DL Random Glucose 148 MG/DL 128 MG/DL Total Protein 8.7 GM/DL 7.8 GM/DL Albumin 3.6 GM/DL 3.2 GM/DL Calcium Level 8.7 MG/DL 8.8 MG/DL Alkaline Phosphatase 48 U/L 42 U/L Aspartate Amino Transf (AST/SGOT) 18 U/L 18 U/L Alanine Aminotransferase (ALT/SGPT) 27 U/L 25 U/L Total Bilirubin 0.8 MG/DL 0.6 MG/DL Sodium Level 136 MEQ/L 137 MEQ/L Potassium Level 3.9 MEQ/L 3.9 MEQ/L Chloride Level 99 MEQ/L 103 MEQ/L Carbon Dioxide Level 26.6 MEQ/L 23.5 MEQ/L Anion Gap 10 MEQ/L 11 MEQ/L Estimat Glomerular Filtration Rate 98 ML/MIN 103 ML/MIN Lipase 534 U/L Urine Color YELLOW Urine Turbidity CLEAR Urine pH 6.5 Urine Specific [place] 1.036 Urine Protein 100 mg/dL Urine Glucose (UA) 300 mg/dL Urine Ketones 150 mg/dL Urine Occult Blood NEG Urine Nitrite NEG Urine Bilirubin NEG Urine Urobilinogen 2.0 MG/DL Urine Leukocyte Esterase NEG Urine RBC 1 /hpf Urine WBC 1 /hpf Urine Bacteria RARE /hpf Urine Mucus FEW /lpf Microscopic Urinalysis Comment CULT NOT INDICATED Triglycerides Level 39 MG/DL Physical Examination HEENT: Pupils round and reactive to light; normocephalic; atraumatic NECK: Neck is supple, thick CHEST: Chest is clear to auscultation and percussion. Low volumes secondary to pain CARDIAC: Regular rate and rhythm ABDOMEN: Soft, mild bloating, tenderness gastric mid abdomen region radiating around to left lower back; no hepatosplenomegaly; bowel sounds are present in all four quadrants. EXTREMITIES: No clubbing, cyanosis, or edema. SKIN: Normal turgor; no rash; no jaundice. 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 Speech is clear (Viki Ohara) Assessment and Plan Assessment: (1) Acute pancreatitis ICD Codes: K85.90 - Acute pancreatitis without necrosis or infection, unspecified Status: Acute Plan Acute pancreatitis with elevated lipase 534. Pain initially was mid abdomen, gastric area left upper quadrant radiating into lower back. Getting minimal mild relief with ice pack on left lower back. This is his third attack in 5 years. Patient is a known diabetic and has been diet and exercise controlled. Denies any alcohol intake. No previous colonoscopy or endoscopy. Leukocytosis noted with WBC count 17.4 Constipation, acute on chronic. Does state he doesn't feel like he's been drinking enough fluids lately. Obesity mild, mildly elevated possibly secondary to stress Plan Diet clear liquids for now PPI Pain management per attending IV hydration Bowel regimen ,MiraLAX ordered daily for now, start in a.m. Zofran as needed for nausea Monitor labs including lipase level Supportive care Further recommendations based on symptoms and findings. Patient was seen and examined per myself and Dr. Yusuf, note was written on his behalf (Viki Ohara) Physician Comments As above, will follow up with you. Thank you for the consult. (Anshu Yusuf MD) Problem Qualifiers (1) Acute pancreatitis: Qualified Codes: K85.90 - Acute pancreatitis without necrosis or infection, unspecified Viki Ohara Jul 18, 2017 15:22 Anshu Yusuf MD Jul 19, 2017 10:08
--- NOTE | 2017-07-18 15:52 | HHI.HP ---
[facility] Service Family Medicine Primary Care Physician Unknown Admission Diagnosis Acute pancreatitis Diagnoses: International Travel<30 Days: No Contact w/Intl Traveler<30days: No Known Affected Area: No History of Present Illness Patient is a 47-year-old male with a history of diabetes mellitus (diet controlled) who presents for 8/10 cramping left upper abdominal pain, nausea, and vomiting. Abdominal pain and nausea began 2 days ago after he says that he ate his morning meal while at work and thought he had food poisoning. Tried not to eat anything for the rest of the day if his symptoms would improve. Abdominal pain was worse with moving and better with applying ice. Later in the day he experienced vomiting of clear, yellow fluid - no food. Has experienced several more similar episodes of vomiting since then. Last episode of vomiting was before admission. Endorses fatigue. Rare alcohol use, last drink was on his birthday in June when he drinks 2 hurricanes. Usually eats a fatty diet. Has had 2 previous hospitalizations for pancreatitis. Last hospitalization was in February 2017. Etiology was undetermined, triglycerides were 36 (low). PCP is Dr. Barroso in [place]. (Isabel Santoro MD R1) Review of Systems Constitutional: DENIES: Fever, Night Sweats Endocrine: DENIES: Polyuria, Polyphagia Eyes: DENIES: Eye inflammation, Eye pain Ears, nose, mouth, throat: DENIES: Nasal discharge, Throat pain Respiratory: DENIES: Cough, Wheezing Cardiovascular: DENIES: Chest pain, Palpitations Gastrointestinal: COMPLAINS OF: Constipation (last bowel movement 2 days ago), DENIES: Diarrhea Genitourinary: DENIES: Urinary incontinence, Dysuria Musculoskeletal: DENIES: Joint pain, Muscle aches Integumentary: DENIES: Abnormal pigmentation Hematologic/lymphatic: DENIES: Bruising Immunologic/allergic: DENIES: Eczema Neurologic: DENIES: Abnormal gait, Paresthesias, Tremor (Isabel Santoro MD R1) Past Family Social History Past Medical History Asthma (diagnosed 20 years ago), last exacerbation was at that time Diabetes mellitus controlled via diet Past Surgical History None (Isabel Santoro MD R1) Allergies: Coded Allergies: iodine (Verified Allergy, Severe, 07/18/17) shellfish derived (Verified Allergy, Severe, respiratory distress, 07/18/17 ) penicillin G (Unverified Allergy, Unknown, COUGHING, 07/18/17) Family History Mom: None Dad: [place], stroke. at age 72. Social History No smoking or recreational/illicit drug use Rare alcohol use, less than once a month [place] lives in an apartment with and son Works in machine repair, involves lifting heavy equipment (Isabel Santoro MD R1) Physical Exam Vital Signs Vital Signs Date Time Temp Pulse Resp B/P (MAP) Pulse Ox O2 Delivery O2 Flow Rate FiO2 07/18/17 12:32 99 21 07/18/17 11:00 78 21 171/89 (116) 97 Room Air 07/18/17 08:17 78 18 179/94 (122) 99 Room Air 07/18/17 08:05 97.8 80 15 172/89 (116) 99 Physical Exam GENERAL: This is a pleasant male laying flat in bed, appears uncomfortable and speaks minimally. States that speaking makes the pain worse. SKIN: Cool and dry. EYES: Extraocular motions intact. ENT: Throat without erythema, tonsillar hypertrophy or exudate. Uvula midline. Airway patent. NECK: Trachea midline. CARDIOVASCULAR: Regular rate and rhythm without murmurs, gallops, or rubs. RESPIRATORY: Clear to auscultation. GASTROINTESTINAL: Abdomen soft, obese, tender to palpation in the upper mid abdomen. No hepato-splenomegaly, or palpable masses. No guarding. MUSCULOSKELETAL: Extremities without clubbing, cyanosis, or edema. NEUROLOGICAL: Awake and alert. No focal deficits. Motor and sensory grossly within normal limits. Normal speech. Laboratory Laboratory Tests Test 07/18/17 08:25 07/18/17 10:50 07/18/17 13:39 White Blood Count 17.4 Red Blood Count 5.18 Hemoglobin 15.6 Hematocrit 46.2 Mean Corpuscular Volume 89.3 Mean Corpuscular Hemoglobin 30.1 Mean Corpuscular Hemoglobin Concent 33.7 Red Cell Distribution Width 14.3 Platelet Count 228 Mean Platelet Volume 8.3 Neutrophils (%) (Auto) 86.7 Lymphocytes (%) (Auto) 7.1 Monocytes (%) (Auto) 5.7 Eosinophils (%) (Auto) 0.3 Basophils (%) (Auto) 0.2 Neutrophils # (Auto) 15.1 Lymphocytes # (Auto) 1.2 Monocytes # (Auto) 1.0 Eosinophils # (Auto) 0.0 Basophils # (Auto) 0.0 CBC Comment DIFF FINAL Differential Comment Prothrombin Time 11.3 Prothromb Time International Ratio 1.1 Activated Partial Thromboplast Time 25.7 Blood Urea Nitrogen 11 10 Creatinine 0.99 0.95 Random Glucose 148 128 Total Protein 8.7 7.8 Albumin 3.6 3.2 Calcium Level 8.7 8.8 Alkaline Phosphatase 48 42 Aspartate Amino Transf (AST/SGOT) 18 18 Alanine Aminotransferase (ALT/SGPT) 27 25 Total Bilirubin 0.8 0.6 Sodium Level 136 137 Potassium Level 3.9 3.9 Chloride Level 99 103 Carbon Dioxide Level 26.6 23.5 Anion Gap 10 11 Estimat Glomerular Filtration Rate 98 103 Lipase 534 Urine Color YELLOW Urine Turbidity CLEAR Urine pH 6.5 Urine Specific [place] 1.036 Urine Protein 100 Urine Glucose (UA) 300 Urine Ketones 150 Urine Occult Blood NEG Urine Nitrite NEG Urine Bilirubin NEG Urine Urobilinogen 2.0 Urine Leukocyte Esterase NEG Urine RBC 1 Urine WBC 1 Urine Bacteria RARE Urine Mucus FEW Microscopic Urinalysis Comment CULT NOT INDICATED Triglycerides Level 39 (Isabel Santoro MD R1) Result Diagram: 07/18/17 0825 07/18/17 1339 Imaging Last Impressions Abdomen/Pelvis CT 07/18/17 0822 Signed Impressions: Service Date/Time: Tuesday, July 18, 2017 08:41 - CONCLUSION: 1. Mild acute pancreatitis. Findings similar to February 2017. Jose Caruso MD (Isabel Santoro MD R1) Caprini VTE Risk Assessment Caprini VTE Risk Assessment: Mod/High Risk (score >= 2) Caprini Risk Assessment Model Point Value = 1 Point Value = 2 Point Value = 3 Point Value = 5 Age 41-60 Minor surgery BMI > 25 kg/m2 Swollen legs Varicose veins or History of unexplained or recurrent spontaneous Oral contraceptives or hormone replacement Sepsis (< 1 month) Serious lung disease, including pneumonia (< 1 month) Abnormal pulmonary function Acute myocardial infarction Congestive heart failure (< 1 month) History of inflammatory bowel disease Medical patient at bed rest Age 61-74 Arthroscopic surgery Major open surgery (> 45 min) Laparoscopic surgery (> 45 min) Malignancy Confined to bed (> 72 hours) Immobilizing plaster cast Central venous access Age >= 75 History of VTE Family history of VTE Factor V Leiden Prothrombin [id number] Lupus anticoagulant Anticardiolipin antibodies Elevated serum homocysteine Heparin-induced thrombocytopenia Other congenital or acquired thrombophilia Stroke (< 1 month) Elective arthroplasty Hip, pelvis, or leg fracture Acute spinal cord injury (< 1 month) Prophylaxis Regimen Total Risk Factor Score Risk Level Prophylaxis Regimen 0-1 Low Early ambulation 2 Moderate Order ONE of the following: *Sequential Compression Device (SCD) *Heparin 5000 units SQ BID 3-4 Higher Order ONE of the following medications: *Heparin 5000 units SQ TID *Enoxaparin/Lovenox 40 mg SQ daily (WT < 150 kg, CrCl > 30 mL/min) *Enoxaparin/Lovenox 30 mg SQ daily (WT < 150 kg, CrCl > 10-29 mL/min) *Enoxaparin/Lovenox 30 mg SQ BID (WT < 150 kg, CrCl > 30 mL/min) AND/OR *Sequential Compression Device (SCD) 5 or more Highest Order ONE of the following medications: *Heparin 5000 units SQ TID (Preferred with Epidurals) *Enoxaparin/Lovenox 40 mg SQ daily (WT < 150 kg, CrCl > 30 mL/min) *Enoxaparin/Lovenox 30 mg SQ daily (WT < 150 kg, CrCl > 10-29 mL/min) *Enoxaparin/Lovenox 30 mg SQ BID (WT < 150 kg, CrCl > 30 mL/min) AND *Sequential Compression Device (SCD) (Isabel Santoro MD R1) Assessment and Plan Assessment and Plan Patient is a 47-year-old male with a history of diabetes mellitus 2 admitted to the hospital for acute pancreatitis. Findings indicated in CT, lipase mildly elevated. This is the patient's third hospitalization for pancreatitis-will consult GI for further assessment and recommendations. Provide maintenance IV fluids, pain control with IV Toradol, Zofran, sliding scale insulin for blood glucose control. The 3 most common causes of pancreatitis are related to gallstones, heavy alcohol use, and triglycerides. Order triglyceride level to evaluate for etiology most likely in patient given history and findings. However, result may be inaccurate due to decreased oral intake/fasting. Will likely need further outpatient work-up. To rule out gallstones, order abdominal ultrasound. Code Status Full Discussed Condition With Dr. Wan and Dr. Lim (Isabel Santoro MD R1) Attending Attestation Patient seen and examined. Case reviewed and discussed with the resident team. Agree with plan of care as discussed with me and documented in the resident note. pt seen on admission. consulting GI as this is a recurrent problem (Miroslava Lim MD) Problem List: (1) Acute pancreatitis ICD Codes: K85.90 - Acute pancreatitis without necrosis or infection, unspecified Status: Acute Plan: See above plan Triglyceride level Upper abdominal US for gallstones Clear liquid diet IVF Zofran Toradol IV PRN for pain, morphine for breakthrough (2) DM (diabetes mellitus) ICD Codes: E11.9 - Type 2 diabetes mellitus without complications Plan: Low-dose sliding scale Order A1c Monitor bedside glucose and daily fasting glucose. If consistently greater than 180, we'll consider adding long-acting (3) HTN (hypertension) ICD Codes: I10 - Essential (primary) hypertension Plan: No previous history, possibly secondary to pain Clonidine 0.1 mg every 6 hours when necessary to maintain blood pressure less than 180/100 (4) FEN Plan: Fluids: Maintenance IV fluids at 114 MLS per hour Electrolytes: Supplement as needed Nutrition: Clear liquid diet GI prophy: IV Protonix 40 mg qday DVT prophy: Lovenox, SCDs (Isabel Santoro MD R1) Physician Certification 2 Midnight Certification Type: Admission for Inpatient Services Order for Inpatient Services The services are ordered in accordance with Medicare regulations or non- Medicare payer requirements, as applicable. In the case of services not specified as inpatient-only, they are appropriately provided as inpatient services in accordance with the 2-midnight benchmark. Estimated LOS (days): 2 2 days is the estimated time the patient will need to remain in the hospital, assuming treatment plan goals are met and no additional complications. Post-Hospital Plan: Home (Isabel Santoro MD R1) Problem Qualifiers (1) Acute pancreatitis: Qualified Codes: K85.90 - Acute pancreatitis without necrosis or infection, unspecified (2) DM (diabetes mellitus): Qualified Codes: E11.9 - Type 2 diabetes mellitus without complications (3) HTN (hypertension): Qualified Codes: I10 - Essential (primary) hypertension Isabel Santoro MD R1 Jul 18, 2017 15:52 Miroslava Lim MD Jul 19, 2017 12:38
[2017-07-18 16:27] VITALS: BP 175/85; PULSE 82; RESP 20; TEMP 98; O2SAT 95
[2017-07-18] MEDS: PANTOPRAZOLE SODIUM 40 MG VIAL IV PUSH SCH (16:51)
[2017-07-18] MEDS: ONDANSETRON HCL 4 MG/2 ML VIAL IV PUSH PRN (16:52)
[2017-07-18] MEDS: INSULIN ASPART SUPPLEMENTAL SCALE SQ SCH ×2 (16:54→21:00)
[2017-07-18] MEDS ORDERED: ACETAMINOPHEN/HYDROcodone 325 MG/5 MG TAB PO PRN (17:30)
[2017-07-18] MEDS: ACETAMINOPHEN/HYDROcodone 325 MG/7.5 MG TAB PO PRN (19:43)
[2017-07-18] MEDS: SODIUM CHLORIDE 0.9% FLUSH 10 ML FLUSH IV FLUSH SCH (21:00)
[2017-07-18 21:03] VITALS: BP 164/74; PULSE 87; RESP 18; TEMP 99.4; O2SAT 97
[2017-07-18] MEDS ORDERED: NALOXONE HCL 0.4 MG/ML AMP IV PUSH PRN (21:45)
[2017-07-18] MEDS: HYDROmorphone HCL PF 2 MG/ML VIAL IV PUSH PRN (22:08)
--- NOTE | 2017-07-18 22:12 | RADRPT ---
EXAM DATE/TIME: 07/18/2017 21:33 [place] COMPARISON: CT ABDOMEN & PELVIS W/O CONTRAST, July 18, 2017, 8:41. INDICATIONS : Abdominal pain. MEDICAL HISTORY : Pancreatitis. Asthma. Diabetes. SURGICAL HISTORY : None. ENCOUNTER: Initial ACUITY: 1 day PAIN SCORE: 7/10 LOCATION: Bilateral upper quadrant MEASUREMENTS: LIVER: 16.2 cm length COMMON DUCT: 3 mm RIGHT KIDNEY: 10.7 x 5.7 x 5.3 cm LEFT KIDNEY: 11.3 x 5.8 x 5.6 cm SPLEEN: 8.4 cm length AORTA: 2.7cm maximal FINDINGS: LIVER: Normal echotexture without focal lesion or ductal dilatation. COMMON DUCT: No intraluminal mass or stone visualized. GALLBLADDER: Contains no stones, demonstrates no wall thickening or pericholecystic fluid. PANCREAS: Edematous. No perceptible mass or organized fluid. RIGHT KIDNEY: No hydronephrosis, stone or mass. LEFT KIDNEY: No hydronephrosis, stone or mass. SPLEEN: No focal lesion. AORTA: Non aneurysmal. IVC: Within normal limits. CONCLUSION: Mild peripancreatic edema related to acute pancreatitis. No organized/drainable fluid seen. Otherwise within normal limits. No gallstones or ductal dilatation demonstrated. Alan Auguste MD on July 18, 2017 at 22:08 Board Certified Radiologist. This report was verified electronically.
[2017-07-19] MEDS: ACETAMINOPHEN/HYDROcodone 325 MG/7.5 MG TAB PO PRN ×3 (02:08→10:54)
[2017-07-19] MEDS: SODIUM CHLOR 0.9% 1000 ML INJ 1,000 ML IV SCH ×3 (02:08→23:16)
[2017-07-19 04:07] VITALS: BP 171/80; PULSE 81; RESP 18; TEMP 98.5; O2SAT 96
[2017-07-19] MEDS: HYDROmorphone HCL PF 2 MG/ML VIAL IV PUSH PRN ×4 (04:21→23:16)
[2017-07-19 07:05] LABS: AUTOMATED NEUTROPHIL # 16.3 TH/MM3 (1.8-7.7); BASOPHIL % 0.1 % (0.0-2.0); EOSINOPHIL % 0.1 % (0.0-4.0); HEMATOCRIT 40.9 % (39.0-51.0); HEMOGLOBIN 13.9 GM/DL (13.0-17.0); LYMPH % 5.5 % (9.0-44.0); MEAN CELL VOLUME 88.3 FL (80.0-100.0); MEAN CORPUSCULAR HGB CONC 33.9 % (32.0-36.0); MEAN PLATELET VOLUME 8.4 FL (7.0-11.0); MONO % 6.7 % (0.0-8.0); MONOCYTE # 1.2 TH/MM3 (0-0.9); NEUT % 87.6 % (16.0-70.0); PLATELET COUNT 202 TH/MM3 (150-450); RED BLOOD COUNT 4.63 MIL/MM3 (4.50-5.90); RED CELL DISTRIBUTION WIDTH 14.2 % (11.6-17.2); WHITE BLOOD COUNT 18.6 TH/MM3 (4.0-11.0)
[2017-07-19] MEDS: INSULIN ASPART SUPPLEMENTAL SCALE SQ SCH ×4 (08:00→20:18)
[2017-07-19 08:21] VITALS: BP 179/84; PULSE 78; RESP 24; TEMP 98.9; O2SAT 93
[2017-07-19] MEDS: HYDROCHLOROTHIAZIDE 12.5 MG CAP PO SCH (08:31)
[2017-07-19] MEDS: SODIUM CHLORIDE 0.9% FLUSH 10 ML FLUSH IV FLUSH SCH ×2 (08:31→20:14)
[2017-07-19] MEDS: POLYETHYLENE GLYCOL 17 GM PKG PO SCH (08:31)
--- NOTE | 2017-07-19 09:17 | HHI.GIFU ---
Subjective Remarks Pt sitting on edge of bed, just got his pain meds. He says overall he feels his pain is improving. Denies n/v. (Ayde Rausch) Objective Vitals I&O Vital Signs Date Time Temp Pulse Resp B/P (MAP) Pulse Ox O2 Delivery O2 Flow Rate FiO2 07/19/17 08:29 18 07/19/17 08:21 98.9 78 24 179/84 (115) 93 07/19/17 04:07 98.5 81 18 171/80 (110) 96 07/18/17 21:03 99.4 87 18 164/74 (104) 97 07/18/17 16:27 98.0 82 20 175/85 (115) 95 07/18/17 12:32 99 21 07/18/17 11:00 78 21 171/89 (116) 97 Room Air I/O 07/18/17 07/18/17 07/18/17 07/19/17 07/19/17 07/19/17 07:00 15:00 23:00 07:00 15:00 23:00 Intake Total 480 ml Output Total 400 ml Balance 80 ml Intake Oral 480 ml Output Urine Total 400 ml Laboratory Laboratory Tests Test 07/18/17 10:50 07/18/17 13:39 07/19/17 05:50 Urine Color YELLOW Urine Turbidity CLEAR Urine pH 6.5 Urine Specific [place] 1.036 Urine Protein 100 Urine Glucose (UA) 300 Urine Ketones 150 Urine Occult Blood NEG Urine Nitrite NEG Urine Bilirubin NEG Urine Urobilinogen 2.0 Urine Leukocyte Esterase NEG Urine RBC 1 Urine WBC 1 Urine Bacteria RARE Urine Mucus FEW Microscopic Urinalysis Comment CULT NOT INDICATED Blood Urea Nitrogen 10 Creatinine 0.95 Random Glucose 128 Total Protein 7.8 Albumin 3.2 Calcium Level 8.8 Alkaline Phosphatase 42 Aspartate Amino Transf (AST/SGOT) 18 Alanine Aminotransferase (ALT/SGPT) 25 Total Bilirubin 0.6 Sodium Level 137 Potassium Level 3.9 Chloride Level 103 Carbon Dioxide Level 23.5 Anion Gap 11 Estimat Glomerular Filtration Rate 103 Triglycerides Level 39 White Blood Count 18.6 Red Blood Count 4.63 Hemoglobin 13.9 Hematocrit 40.9 Mean Corpuscular Volume 88.3 Mean Corpuscular Hemoglobin 30.0 Mean Corpuscular Hemoglobin Concent 33.9 Red Cell Distribution Width 14.2 Platelet Count 202 Mean Platelet Volume 8.4 Neutrophils (%) (Auto) 87.6 Lymphocytes (%) (Auto) 5.5 Monocytes (%) (Auto) 6.7 Eosinophils (%) (Auto) 0.1 Basophils (%) (Auto) 0.1 Neutrophils # (Auto) 16.3 Lymphocytes # (Auto) 1.0 Monocytes # (Auto) 1.2 Eosinophils # (Auto) 0.0 Basophils # (Auto) 0.0 CBC Comment DIFF FINAL Differential Comment Lipase 359 Imaging Last Impressions Abdomen/Pelvis CT 07/18/17 0822 Signed Impressions: Service Date/Time: Tuesday, July 18, 2017 08:41 - CONCLUSION: 1. Mild acute pancreatitis. Findings similar to February 2017. Jose Caruso MD Abdomen Ultrasound 07/18/17 0000 Signed Impressions: Service Date/Time: Tuesday, July 18, 2017 21:33 - CONCLUSION: Mild peripancreatic edema related to acute pancreatitis. No organized/drainable fluid seen. Otherwise within normal limits. No gallstones or ductal dilatation demonstrated. Alan Auguste MD Physical Exam HEENT: PERRL; normocephalic; atraumatic; no jaundice. CHEST: CTA CARDIAC: RRR ABDOMEN: Soft, nondistended,mild epigastric TTP; no hepatosplenomegaly; bowel sounds are present in all four quadrants. EXTREMITIES: No clubbing, cyanosis, or edema. SKIN: Normal; no rash; no jaundice. MIXING ENGINEER: slow to answer (Ayde Rausch) Assessment and Plan Assessment: (1) Acute pancreatitis ICD Codes: K85.90 - Acute pancreatitis without necrosis or infection, unspecified Status: Acute Plan Acute pancreatitis with elevated lipase 534. Pain initially was mid abdomen, gastric area left upper quadrant radiating into lower back. Getting minimal mild relief with ice pack on left lower back. This is his third attack in 5 years. Patient is a known diabetic and has been diet and exercise controlled. Denies any alcohol intake. No previous colonoscopy or endoscopy. Leukocytosis noted with WBC count 17.4 Constipation, acute on chronic. Does state he doesn't feel like he's been drinking enough fluids lately. Obesity mild, mildly elevated possibly secondary to stress 07/19/17 pain improving. lipase now WNL but WBC elevated 18k. afebrile. triglycerides not elevated. will adv diet and see how he does Plan heart healthy diet, soft Pain management per attending daily miralax Monitor labs Supportive care Patient was seen and examined per myself and Dr. Yusuf, note was written on his behalf (Ayde Rausch) Physician Comments Agree with plan as above, will follow up with you. (Anshu Yusuf MD) Problem Qualifiers (1) Acute pancreatitis: Qualified Codes: K85.90 - Acute pancreatitis without necrosis or infection, unspecified Ayde Rausch Jul 19, 2017 09:17 Anshu Yusuf MD Jul 19, 2017 14:39
--- NOTE | 2017-07-19 10:01 | HHI.HP ---
[facility] Service Family Medicine Primary Care Physician Unknown Admission Diagnosis Acute pancreatitis Diagnoses: (1) Acute pancreatitis Diagnosis: Principal (2) DM (diabetes mellitus) Diagnosis: Principal (3) HTN (hypertension) Diagnosis: Principal (4) FEN Diagnosis: Principal International Travel<30 Days: No Contact w/Intl Traveler<30days: No Known Affected Area: No History of Present Illness Mr Fenton is a 47-year-old male with a history of diabetes mellitus (diet controlled) who presented for 8/10 cramping left upper abdominal pain, nausea, and vomiting. Abdominal pain and nausea began 2 days prior to admission after he says that he ate his morning meal while at work and thought he had food poisoning. Tried not to eat anything for the rest of the day to see if his symptoms would improve. Abdominal pain was worse with moving and better with applying ice. Later in the day he experienced vomiting of clear, yellow fluid - no food. Has experienced several more similar episodes of vomiting since then. Last episode of vomiting was before admission. Endorses fatigue. Rare alcohol use, last drink was on his birthday in June when he drinks 2 hurricanes. Usually eats a fatty diet. Has had 2 previous hospitalizations for pancreatitis. Last hospitalization was in February 2017. Etiology was undetermined, triglycerides were 36 (low) but he was fasting. PCP is Dr. Barroso in [place]. He reports feeling improved today compared to admission as far as his underlying pain. However he reports a bad night with pain. he was sleeping when we entered his room this am and is getting dilaudid for breakthrough pain. He can drink fluids but was given a diet today. Review of Systems Other Constitutional: DENIES: Fever, Night Sweats Endocrine: DENIES: Polyuria, Polyphagia Eyes: DENIES: Eye inflammation, Eye pain Ears, nose, mouth, throat: DENIES: Nasal discharge, Throat pain Respiratory: DENIES: Cough, Wheezing Cardiovascular: DENIES: Chest pain, Palpitations Gastrointestinal: COMPLAINS OF: Constipation (last bowel movement 2 days ago), DENIES: Diarrhea Genitourinary: DENIES: Urinary incontinence, Dysuria Musculoskeletal: DENIES: Joint pain, Muscle aches Integumentary: DENIES: Abnormal pigmentation Hematologic/lymphatic: DENIES: Bruising Immunologic/allergic: DENIES: Eczema Neurologic: DENIES: Abnormal gait, Paresthesias, Tremor Past Family Social History Past Medical History Asthma (diagnosed 20 years ago), last exacerbation was at that time Diabetes mellitus controlled via diet Past Surgical History None Reported Medications Allergies: Coded Allergies: iodine (Verified Allergy, Severe, 07/18/17) shellfish derived (Verified Allergy, Severe, respiratory distress, 07/18/17 ) penicillin G (Unverified Allergy, Unknown, COUGHING, 07/18/17) Family History Mom: None Dad: [place], stroke. at age 72. Social History No smoking or recreational/illicit drug use Rare alcohol use, less than once a month [place] lives in an apartment with and son Works in machine repair, involves lifting heavy equipment Physical Exam Vital Signs Vital Signs Date Time Temp Pulse Resp B/P (MAP) Pulse Ox O2 Delivery O2 Flow Rate FiO2 07/19/17 09:32 20 07/19/17 08:29 18 07/19/17 08:21 98.9 78 24 179/84 (115) 93 07/19/17 04:07 98.5 81 18 171/80 (110) 96 07/18/17 21:03 99.4 87 18 164/74 (104) 97 07/18/17 16:27 98.0 82 20 175/85 (115) 95 07/18/17 12:32 99 21 07/18/17 11:00 78 21 171/89 (116) 97 Room Air Physical Exam GENERAL: This is a pleasant male laying flat in bed, appears comfortable and speaks normally. SKIN: Cool and dry. EYES: Extraocular motions intact. ENT: Throat without erythema, tonsillar hypertrophy or exudate. Uvula midline. Airway patent. NECK: Trachea midline. CARDIOVASCULAR: Regular rate and rhythm without murmurs, gallops, or rubs. RESPIRATORY: Clear to auscultation. GASTROINTESTINAL: Abdomen soft, obese, tender to palpation in the upper mid abdomen. No hepato-splenomegaly, or palpable masses. No guarding. MUSCULOSKELETAL: Extremities without clubbing, cyanosis, or edema. NEUROLOGICAL: Awake and alert. No focal deficits. Motor and sensory grossly within normal limits. Normal speech. Laboratory Laboratory Tests Test 07/18/17 10:50 07/18/17 13:39 07/19/17 05:50 Urine Color YELLOW Urine Turbidity CLEAR Urine pH 6.5 Urine Specific [place] 1.036 Urine Protein 100 Urine Glucose (UA) 300 Urine Ketones 150 Urine Occult Blood NEG Urine Nitrite NEG Urine Bilirubin NEG Urine Urobilinogen 2.0 Urine Leukocyte Esterase NEG Urine RBC 1 Urine WBC 1 Urine Bacteria RARE Urine Mucus FEW Microscopic Urinalysis Comment CULT NOT INDICATED Blood Urea Nitrogen 10 Creatinine 0.95 Random Glucose 128 Total Protein 7.8 Albumin 3.2 Calcium Level 8.8 Alkaline Phosphatase 42 Aspartate Amino Transf (AST/SGOT) 18 Alanine Aminotransferase (ALT/SGPT) 25 Total Bilirubin 0.6 Sodium Level 137 Potassium Level 3.9 Chloride Level 103 Carbon Dioxide Level 23.5 Anion Gap 11 Estimat Glomerular Filtration Rate 103 Triglycerides Level 39 White Blood Count 18.6 Red Blood Count 4.63 Hemoglobin 13.9 Hematocrit 40.9 Mean Corpuscular Volume 88.3 Mean Corpuscular Hemoglobin 30.0 Mean Corpuscular Hemoglobin Concent 33.9 Red Cell Distribution Width 14.2 Platelet Count 202 Mean Platelet Volume 8.4 Neutrophils (%) (Auto) 87.6 Lymphocytes (%) (Auto) 5.5 Monocytes (%) (Auto) 6.7 Eosinophils (%) (Auto) 0.1 Basophils (%) (Auto) 0.1 Neutrophils # (Auto) 16.3 Lymphocytes # (Auto) 1.0 Monocytes # (Auto) 1.2 Eosinophils # (Auto) 0.0 Basophils # (Auto) 0.0 CBC Comment DIFF FINAL Differential Comment Lipase 359 Result Diagram: 07/19/17 0550 07/18/17 1339 Imaging Last Impressions Abdomen/Pelvis CT 07/18/17 0822 Signed Impressions: Service Date/Time: Tuesday, July 18, 2017 08:41 - CONCLUSION: 1. Mild acute pancreatitis. Findings similar to February 2017. Jose Caruso MD Caprini VTE Risk Assessment Caprini VTE Risk Assessment: Mod/High Risk (score >= 2) Caprini Risk Assessment Model Point Value = 1 Point Value = 2 Point Value = 3 Point Value = 5 Age 41-60 Minor surgery BMI > 25 kg/m2 Swollen legs Varicose veins or History of unexplained or recurrent spontaneous Oral contraceptives or hormone replacement Sepsis (< 1 month) Serious lung disease, including pneumonia (< 1 month) Abnormal pulmonary function Acute myocardial infarction Congestive heart failure (< 1 month) History of inflammatory bowel disease Medical patient at bed rest Age 61-74 Arthroscopic surgery Major open surgery (> 45 min) Laparoscopic surgery (> 45 min) Malignancy Confined to bed (> 72 hours) Immobilizing plaster cast Central venous access Age >= 75 History of VTE Family history of VTE Factor V Leiden Prothrombin [id number] Lupus anticoagulant Anticardiolipin antibodies Elevated serum homocysteine Heparin-induced thrombocytopenia Other congenital or acquired thrombophilia Stroke (< 1 month) Elective arthroplasty Hip, pelvis, or leg fracture Acute spinal cord injury (< 1 month) Prophylaxis Regimen Total Risk Factor Score Risk Level Prophylaxis Regimen 0-1 Low Early ambulation 2 Moderate Order ONE of the following: *Sequential Compression Device (SCD) *Heparin 5000 units SQ BID 3-4 Higher Order ONE of the following medications: *Heparin 5000 units SQ TID *Enoxaparin/Lovenox 40 mg SQ daily (WT < 150 kg, CrCl > 30 mL/min) *Enoxaparin/Lovenox 30 mg SQ daily (WT < 150 kg, CrCl > 10-29 mL/min) *Enoxaparin/Lovenox 30 mg SQ BID (WT < 150 kg, CrCl > 30 mL/min) AND/OR *Sequential Compression Device (SCD) 5 or more Highest Order ONE of the following medications: *Heparin 5000 units SQ TID (Preferred with Epidurals) *Enoxaparin/Lovenox 40 mg SQ daily (WT < 150 kg, CrCl > 30 mL/min) *Enoxaparin/Lovenox 30 mg SQ daily (WT < 150 kg, CrCl > 10-29 mL/min) *Enoxaparin/Lovenox 30 mg SQ BID (WT < 150 kg, CrCl > 30 mL/min) AND *Sequential Compression Device (SCD) Assessment and Plan Assessment and Plan Patient is a 47-year-old male with a history of diabetes mellitus 2 admitted to the hospital for acute pancreatitis. Findings indicated in CT, lipase mildly elevated. This is the patient's third hospitalization for pancreatitis-will consult GI for further assessment and recommendations. Provide maintenance IV fluids, pain control with IV Toradol, Zofran, sliding scale insulin for blood glucose control. The 3 most common causes of pancreatitis are related to gallstones, heavy alcohol use, and triglycerides. Order triglyceride level to evaluate for etiology most likely in patient given history and findings. However, result may be inaccurate due to decreased oral intake/fasting. Will likely need further outpatient work-up. To rule out gallstones, order abdominal ultrasound. Problem List: (1) Acute pancreatitis ICD Codes: K85.90 - Acute pancreatitis without necrosis or infection, unspecified Status: Acute Plan: See above plan Triglyceride level fine Upper abdominal US for gallstones normal Clear liquid diet, heart healthy IVF Zofran Toradol IV PRN for pain, dilaudid for breakthrough. added norco if pain increases with food may need to go back to liquids (2) DM (diabetes mellitus) ICD Codes: E11.9 - Type 2 diabetes mellitus without complications Plan: Low-dose sliding scale Order A1c Monitor bedside glucose and daily fasting glucose. If consistently greater than 180, we'll consider adding long-acting (3) HTN (hypertension) ICD Codes: I10 - Essential (primary) hypertension Plan: does have previous history, possibly secondary to pain Clonidine 0.1 mg every 6 hours when necessary to maintain blood pressure less than 180/100 adding HCTZ. will check manual BPs and evaluate for pain. (4) FEN Plan: Fluids: Maintenance IV fluids at 114 MLS per hour Electrolytes: Supplement as needed Nutrition: Clear liquid diet GI prophy: IV Protonix 40 mg qday DVT prophy: Lovenox, SCDs Problem Qualifiers (1) Acute pancreatitis: Qualified Codes: K85.90 - Acute pancreatitis without necrosis or infection, unspecified (2) DM (diabetes mellitus): Qualified Codes: E11.9 - Type 2 diabetes mellitus without complications (3) HTN (hypertension): Qualified Codes: I10 - Essential (primary) hypertension Miroslava Lim MD Jul 19, 2017 10:01
[2017-07-19 11:23] VITALS: BP 163/77; PULSE 70; RESP 12; TEMP 98.6; O2SAT 97
[2017-07-19] MEDS: ENOXAPARIN SODIUM 40 MG/0.4 ML SYRINGE SQ SCH (13:26)
[2017-07-19] MEDS: KETOROLAC TROMETHAMINE 30 MG/ML (IVP) VIAL IVP PRN ×2 (13:26→20:14)
[2017-07-19 14:52] VITALS: BP 138/99; PULSE 77; RESP 24; TEMP 98.9; O2SAT 96
[2017-07-19] MEDS: PANTOPRAZOLE SODIUM 40 MG VIAL IV PUSH SCH (16:08)
[2017-07-19 17:02] LABS: HEMATOCRIT 42.5 % (39.0-51.0); HEMOGLOBIN 14.4 GM/DL (13.0-17.0); MEAN CELL VOLUME 89.5 FL (80.0-100.0); MEAN CORPUSCULAR HEMOGLOBIN 30.3 PG (27.0-34.0); MEAN CORPUSCULAR HGB CONC 33.8 % (32.0-36.0); MEAN PLATELET VOLUME 8.3 FL (7.0-11.0); PLATELET COUNT 197 TH/MM3 (150-450); RED BLOOD COUNT 4.74 MIL/MM3 (4.50-5.90); RED CELL DISTRIBUTION WIDTH 14.3 % (11.6-17.2); WHITE BLOOD COUNT 21.2 TH/MM3 (4.0-11.0)
[2017-07-19] MEDS: ONDANSETRON HCL 4 MG/2 ML VIAL IV PUSH PRN (18:27)
[2017-07-20] VITALS (9 sets, daily range): BP systolic 135–178; BP diastolic 67–93; PULSE 67–83; RESP 16–20; TEMP 98.1–99.4; O2SAT 94–98
[2017-07-20] MEDS: KETOROLAC TROMETHAMINE 30 MG/ML (IVP) VIAL IVP PRN ×4 (02:01→20:16)
[2017-07-20] MEDS: ONDANSETRON HCL 4 MG/2 ML VIAL IV PUSH PRN ×2 (02:06→08:11)
[2017-07-20] MEDS: HYDROmorphone HCL PF 2 MG/ML VIAL IV PUSH PRN ×4 (04:21→23:41)
[2017-07-20] MEDS: INSULIN ASPART SUPPLEMENTAL SCALE SQ SCH ×4 (08:00→20:29)
[2017-07-20] MEDS: SODIUM CHLORIDE 0.9% FLUSH 10 ML FLUSH IV FLUSH SCH ×2 (08:11→20:29)
[2017-07-20] MEDS: SODIUM CHLOR 0.9% 1000 ML INJ 1,000 ML IV SCH ×2 (08:11→17:42)
[2017-07-20] MEDS: HYDROCHLOROTHIAZIDE 12.5 MG CAP PO SCH (08:12)
[2017-07-20] MEDS: POLYETHYLENE GLYCOL 17 GM PKG PO SCH (08:12)
[2017-07-20 08:15] LABS: ALBUMIN 2.6 GM/DL (3.4-5.0); ALKALINE PHOSPHATASE 63 U/L (45-117); ALT (GPT) 17 U/L (12-78); AST (GOT) 14 U/L (15-37); BICARBONATE 26.2 MEQ/L (21.0-32.0); BLOOD UREA NITROGEN 12 MG/DL (7-18); CALCIUM 7.9 MG/DL (8.5-10.1); CHLORIDE 102 MEQ/L (98-107); CREATININE 0.85 MG/DL (0.60-1.30); GLOMERULAR FILTRATION RATE 117 ML/MIN (>89); GLUCOSE,RANDOM 108 MG/DL (74-106); SODIUM (NA) 137 MEQ/L (136-145); TOTAL BILIRUBIN ADULT 0.6 MG/DL (0.2-1.0); TOTAL PROTEIN 7.4 GM/DL (6.4-8.2)
[2017-07-20 09:12] LABS: AUTOMATED NEUTROPHIL # 16.6 TH/MM3 (1.8-7.7); BASOPHIL # 0.1 TH/MM3 (0-0.2); BASOPHIL % 0.3 % (0.0-2.0); EOSINOPHIL # 0.1 TH/MM3 (0-0.4); EOSINOPHIL % 0.4 % (0.0-4.0); HEMATOCRIT 40.1 % (39.0-51.0); LYMPH % 7.4 % (9.0-44.0); LYMPHOCYTE # 1.5 TH/MM3 (1.0-4.8); MEAN CELL VOLUME 88.9 FL (80.0-100.0); MEAN CORPUSCULAR HGB CONC 34.9 % (32.0-36.0); MEAN PLATELET VOLUME 8.4 FL (7.0-11.0); MONO % 8.4 % (0.0-8.0); MONOCYTE # 1.7 TH/MM3 (0-0.9); NEUT % 83.5 % (16.0-70.0); PLATELET COUNT 201 TH/MM3 (150-450); RED BLOOD COUNT 4.51 MIL/MM3 (4.50-5.90); RED CELL DISTRIBUTION WIDTH 14.4 % (11.6-17.2); WHITE BLOOD COUNT 19.8 TH/MM3 (4.0-11.0)
--- NOTE | 2017-07-20 09:30 | HHI.FPPN ---
Subjective Remarks No acute issues overnight. Vitals are stable, patient remains afebrile. He continues to have pain. He particularly has been having pain after eating and drinking. He is not currently feeling pain, but is requiring his Dilaudid for breakthrough pain even throughout the night. The pain is located in the epigastric region and radiates to his lower abdomen and back. He has not had a bowel movement in several days. He denies any nausea, vomiting, fever, or chills. (Calli Wan MD, R3) Objective Vitals Vital Signs Date Time Temp Pulse Resp B/P (MAP) Pulse Ox O2 Delivery O2 Flow Rate FiO2 07/20/17 09:16 18 07/20/17 08:07 98.6 78 16 178/93 (121) 96 07/20/17 05:01 21 07/20/17 04:46 98.1 79 18 147/79 (101) 97 07/20/17 01:22 99.1 83 18 172/86 (114) 96 07/19/17 16:40 20 07/19/17 14:52 98.9 77 24 138/99 (112) 96 07/19/17 12:10 18 07/19/17 11:23 98.6 70 12 163/77 (105) 97 I/O 07/19/17 07/19/17 07/19/17 07/20/17 07/20/17 07/20/17 07:00 15:00 23:00 07:00 15:00 23:00 Intake Total 480 ml 480 ml Output Total 400 ml 200 ml 300 ml 650 ml Balance 80 ml -200 ml -300 ml -170 ml Intake Oral 480 ml 480 ml Output Urine Total 400 ml 200 ml 300 ml 650 ml (Calli Wan MD, R3) Result Diagram: 07/20/17 0620 07/20/17 0620 Imaging Last Impressions Abdomen/Pelvis CT 07/18/17 0822 Signed Impressions: Service Date/Time: Tuesday, July 18, 2017 08:41 - CONCLUSION: 1. Mild acute pancreatitis. Findings similar to February 2017. Jose Caruso MD Abdomen Ultrasound 07/18/17 0000 Signed Impressions: Service Date/Time: Tuesday, July 18, 2017 21:33 - CONCLUSION: Mild peripancreatic edema related to acute pancreatitis. No organized/drainable fluid seen. Otherwise within normal limits. No gallstones or ductal dilatation demonstrated. Alan Auguste MD Objective Remarks GENERAL: This is a pleasant male laying flat in bed, appears tired and speaks normally. SKIN: Cool and dry. EYES: Extraocular motions intact. ENT: Throat without erythema, tonsillar hypertrophy or exudate. Uvula midline. Airway patent. NECK: Trachea midline. CARDIOVASCULAR: Regular rate and rhythm without murmurs, gallops, or rubs. RESPIRATORY: Clear to auscultation. GASTROINTESTINAL: Abdomen soft, obese, mildly distended, non- tender to palpation. No hepato-splenomegaly, or palpable masses. No guarding. MUSCULOSKELETAL: Extremities without clubbing, cyanosis, or edema. NEUROLOGICAL: Awake and alert. No focal deficits. Motor and sensory grossly within normal limits. Normal speech. (Calli Wan MD, R3) A/P Assessment and Plan Patient is a 47-year-old male with a history of diabetes mellitus 2 admitted to the hospital for acute pancreatitis. Findings indicated in CT, lipase mildly elevated. This is the patient's third hospitalization for pancreatitis- GI consulted for further assessment and recommendations. Discharge Planning Pending resolution of acute symptoms, likely in the next several days. (Calli Wan MD, R3) Attending Attestation Patient seen and examined. Case reviewed and discussed with the resident team. Agree with plan of care as discussed with me and documented in the resident note. discussed with him that he could have an unusual cause for pancreatitis. he said he had an uncle with pancreatitis who did not drink and no one understood why he had it as well. I explained it could be some genetic issue but I was not sure (Miroslava Lim MD) Problem List: (1) Acute pancreatitis ICD Codes: K85.90 - Acute pancreatitis without necrosis or infection, unspecified Status: Acute Plan: Unclear etiology, may consider autoimmune evaluation. Pain persisting with leukocytosis trending up today. Will obtain CT abd/pelvis with contrast for further evaluation. Continue IV maintenance fluids @ 114ml/hr Return to liquid diet, as patient not tolerating eating well Triglyceride wnl Abdominal US normal Zofran PRN nausea Toradol IV PRN for pain, norco PRN pain, dilaudid for breakthrough. Protonix 40mg PO daily to cover for dyspepsia (2) DM (diabetes mellitus) ICD Codes: E11.9 - Type 2 diabetes mellitus without complications Plan: Low-dose sliding scale A1c pending Monitor bedside glucose and daily fasting glucose. (3) HTN (hypertension) ICD Codes: I10 - Essential (primary) hypertension Plan: BP ranging 170s/90s Will increase HCTZ from 12.5mg to 25mg PO daily today Clonidine 0.1 mg every 6 hours when necessary to maintain blood pressure less than 180/100 (4) FEN Plan: Fluids: Maintenance IV fluids at 114 ml/hr until tolerating adequate PO Electrolytes: Supplement as needed Nutrition: Liquid diet DVT prophylaxis: Lovenox, SCDs (Calli Wan MD, R3) Problem Qualifiers (1) Acute pancreatitis: Qualified Codes: K85.90 - Acute pancreatitis without necrosis or infection, unspecified (2) DM (diabetes mellitus): Qualified Codes: E11.9 - Type 2 diabetes mellitus without complications (3) HTN (hypertension): Qualified Codes: I10 - Essential (primary) hypertension Calli Wan MD, R3 Jul 20, 2017 09:30 Miroslava Lim MD Jul 23, 2017 21:26
[2017-07-20] MEDS ORDERED: DIATRIZOATE MEGLUM/DIATRIZOATE SOD 9 ML CUP PO ONE (09:45)
[2017-07-20] MEDS ORDERED: HYDROCHLOROTHIAZIDE 12.5 MG CAP PO ONE (09:45)
[2017-07-20] MEDS: PANTOPRAZOLE SOD 40 MG DELAYED RELEASE TAB PO SCH (10:00)
[2017-07-20] MEDS ORDERED: MAGNESIUM CITRATE SOLN 300 ML BTL PO PRN (10:00)
--- NOTE | 2017-07-20 10:01 | HHI.GIFU ---
Subjective Remarks Pt resting in bed. c/o constipation. C/o continued abd pain. he hasn't eaten since yesterday and still having pain. Eating did not worsen it. (Ayde Rausch) Objective Vitals I&O Vital Signs Date Time Temp Pulse Resp B/P (MAP) Pulse Ox O2 Delivery O2 Flow Rate FiO2 07/20/17 09:16 18 07/20/17 08:47 94 21 07/20/17 08:07 98.6 78 16 178/93 (121) 96 07/20/17 05:01 21 07/20/17 04:46 98.1 79 18 147/79 (101) 97 07/20/17 01:22 99.1 83 18 172/86 (114) 96 07/19/17 16:40 20 07/19/17 14:52 98.9 77 24 138/99 (112) 96 07/19/17 12:10 18 07/19/17 11:23 98.6 70 12 163/77 (105) 97 I/O 07/19/17 07/19/17 07/19/17 07/20/17 07/20/17 07/20/17 06:59 14:59 22:59 06:59 14:59 22:59 Intake Total 480 ml 480 ml Output Total 400 ml 200 ml 300 ml 650 ml Balance 80 ml -200 ml -300 ml -170 ml Intake Oral 480 ml 480 ml Output Urine Total 400 ml 200 ml 300 ml 650 ml Laboratory Laboratory Tests Test 07/19/17 15:47 07/20/17 06:20 White Blood Count 21.2 19.8 Red Blood Count 4.74 4.51 Hemoglobin 14.4 14.0 Hematocrit 42.5 40.1 Mean Corpuscular Volume 89.5 88.9 Mean Corpuscular Hemoglobin 30.3 31.0 Mean Corpuscular Hemoglobin Concent 33.8 34.9 Red Cell Distribution Width 14.3 14.4 Platelet Count 197 201 Mean Platelet Volume 8.3 8.4 Neutrophils (%) (Auto) 83.5 Lymphocytes (%) (Auto) 7.4 Monocytes (%) (Auto) 8.4 Eosinophils (%) (Auto) 0.4 Basophils (%) (Auto) 0.3 Neutrophils # (Auto) 16.6 Lymphocytes # (Auto) 1.5 Monocytes # (Auto) 1.7 Eosinophils # (Auto) 0.1 Basophils # (Auto) 0.1 CBC Comment DIFF FINAL Differential Comment Blood Urea Nitrogen 12 Creatinine 0.85 Random Glucose 108 Total Protein 7.4 Albumin 2.6 Calcium Level 7.9 Alkaline Phosphatase 63 Aspartate Amino Transf (AST/SGOT) 14 Alanine Aminotransferase (ALT/SGPT) 17 Total Bilirubin 0.6 Sodium Level 137 Potassium Level 3.5 Chloride Level 102 Carbon Dioxide Level 26.2 Anion Gap 9 Estimat Glomerular Filtration Rate 117 Imaging Last Impressions Abdomen/Pelvis CT 07/18/17 0822 Signed Impressions: Service Date/Time: Tuesday, July 18, 2017 08:41 - CONCLUSION: 1. Mild acute pancreatitis. Findings similar to February 2017. Jose Caruso MD Abdomen Ultrasound 07/18/17 0000 Signed Impressions: Service Date/Time: Tuesday, July 18, 2017 21:33 - CONCLUSION: Mild peripancreatic edema related to acute pancreatitis. No organized/drainable fluid seen. Otherwise within normal limits. No gallstones or ductal dilatation demonstrated. Alan Auguste MD Physical Exam HEENT: PERRL; normocephalic; atraumatic; no jaundice. CHEST: CTA CARDIAC: RRR ABDOMEN: Soft, nondistended,mild epigastric TTP; no hepatosplenomegaly; bowel sounds are present in all four quadrants. EXTREMITIES: No clubbing, cyanosis, or edema. SKIN: Normal; no rash; no jaundice. [employer]IVER: alert and oriented (Ayde Rausch) Assessment and Plan Assessment: (1) Acute pancreatitis ICD Codes: K85.90 - Acute pancreatitis without necrosis or infection, unspecified Status: Acute Plan Acute pancreatitis with elevated lipase 534. Pain initially was mid abdomen, gastric area left upper quadrant radiating into lower back. Getting minimal mild relief with ice pack on left lower back. This is his third attack in 5 years. Patient is a known diabetic and has been diet and exercise controlled. Denies any alcohol intake. No previous colonoscopy or endoscopy. Leukocytosis noted with WBC count 17.4 Constipation, acute on chronic. Does state he doesn't feel like he's been drinking enough fluids lately. Obesity mild, mildly elevated possibly secondary to stress 07/19/17 pain improving. lipase now WNL but WBC elevated 18k. afebrile. triglycerides not elevated. will adv diet and see how he does 07/20/17 continued abd pain, leukocytosis. constipated. afebrile. d/w family medicine, will get CT to further eval Plan rck lipase await CT abd mg citrate after CT Pain management per attending daily miralax Monitor labs Supportive care Patient was seen and examined per myself and Dr. Yusuf, note was written on his behalf (Ayde Rausch) Physician Comments As above, will advance diet. Further recommendations to follow. (Anshu Yusuf MD) Problem Qualifiers (1) Acute pancreatitis: Qualified Codes: K85.90 - Acute pancreatitis without necrosis or infection, unspecified Ayde Rausch Jul 20, 2017 10:01 Anshu Yusuf MD Jul 20, 2017 13:31
[2017-07-20] MEDS: ENOXAPARIN SODIUM 40 MG/0.4 ML SYRINGE SQ SCH (11:55)
[2017-07-20] MEDS ORDERED: SIMETHICONE 80 MG CHEWABLE TAB CHEW PRN (14:00)
[2017-07-20 16:13] LABS: HEMOGLOBIN A1C 6.2 % (4.3-6.0)
[2017-07-20] MEDS ORDERED: IOHEXOL 350 MG/ML 10 ML VIAL (for RAD DIAG) IVCONTRAST ONE (16:19)
--- NOTE | 2017-07-20 17:53 | RADRPT ---
EXAM DATE/TIME: 07/20/2017 16:16 [place] COMPARISON: No previous studies available for comparison. INDICATIONS : Upper abdomen pain, pancreatitis. IV CONTRAST: 92 cc Omnipaque 350 (iohexol) IV ORAL CONTRAST: Prescribed oral contrast ingested. RADIATION DOSE: 14.98 CTDIvol (mGy) MEDICAL HISTORY : Diabetes mellitus type 2. Pancreatitis. SURGICAL HISTORY : None. ENCOUNTER: Initial ACUITY: 1 day PAIN SCALE: 3/10 LOCATION: Bilateral upper quadrant TECHNIQUE: Volumetric scanning of the abdomen and pelvis was performed. Using automated exposure control and ad justment of the mA and/or kV according to patient size, radiation dose was kept as low as reasonably achievable to obtain optimal diagnostic quality images. DICOM format image data is available electro nically for review and comparison. FINDINGS: There is stranding of the peripancreatic fat characteristic of an acute pancreatitis. Trace fluid ext ending into the left paracolic data and anterior pararenal space. Lung bases demonstrate minimal linear atelectasis or scarring. No acute findings in the liver, spleen, adrenals, kidneys. No calcified gallstones identified. No jamila iary ductal dilatation. Trace free fluid in the pelvis. No free air. No bowel obstruction. No adenopathy. CONCLUSION: 1. Acute pancreatitis with peripancreatic fat stranding but without evidence for pseudocyst. Splenic vein patent. Jose Caruso MD on July 20, 2017 at 17:48 Board Certified Radiologist. This report was verified electronically.
[2017-07-20] MEDS: ACETAMINOPHEN/HYDROcodone 325 MG/7.5 MG TAB PO PRN (20:15)
[2017-07-21] MEDS: ACETAMINOPHEN/HYDROcodone 325 MG/7.5 MG TAB PO PRN (01:55)
[2017-07-21] MEDS: KETOROLAC TROMETHAMINE 30 MG/ML (IVP) VIAL IVP PRN ×2 (01:55→08:35)
[2017-07-21] MEDS: SODIUM CHLOR 0.9% 1000 ML INJ 1,000 ML IV SCH (02:29)
[2017-07-21 04:03] VITALS: BP 143/75; PULSE 86; RESP 18; TEMP 98.5; O2SAT 96
[2017-07-21] MEDS: HYDROmorphone HCL PF 2 MG/ML VIAL IV PUSH PRN (06:38)
[2017-07-21] MEDS: INSULIN ASPART SUPPLEMENTAL SCALE SQ SCH (07:58)
[2017-07-21 08:00] VITALS: BP 155/84; PULSE 70; RESP 20; TEMP 98.6; O2SAT 96
[2017-07-21] MEDS: POLYETHYLENE GLYCOL 17 GM PKG PO SCH (08:34)
[2017-07-21] MEDS: SODIUM CHLORIDE 0.9% FLUSH 10 ML FLUSH IV FLUSH SCH (08:34)
[2017-07-21] MEDS: PANTOPRAZOLE SOD 40 MG DELAYED RELEASE TAB PO SCH (08:34)
[2017-07-21] MEDS ORDERED: HYDROCHLOROTHIAZIDE 25 MG TAB PO SCH (09:00)
[2017-07-21 10:34] LABS: BILIRUBIN, URINE NEG (NEG); BLOOD, URINE NEG (NEG); GLUCOSE,URINE NEG (NEG); KETONE, URINE 40 mg/dL (NEG); MUCUS URINE FEW /lpf (OCC); NITRITE,URINE NEG (NEG); SQUAMOUS EPITHELIAL CELL URINE <1 /hpf (0-5); URINE COLOR YELLOW (YELLW/STRAW); URINE LEUKOCYTE ESTERASE NEG (NEG)
--- NOTE | 2017-07-21 10:44 | HHI.GIFU ---
Subjective Remarks Resting in the bed states symptoms continue to gradually improve with abdominal pain Less Bloating noted this a.m. in room Tolerating full liquid diet (Viki Ohara) Objective Vitals I&O Vital Signs Date Time Temp Pulse Resp B/P (MAP) Pulse Ox O2 Delivery O2 Flow Rate FiO2 07/21/17 08:00 98.6 70 20 155/84 (107) 96 07/21/17 04:03 98.5 86 18 143/75 (97) 96 07/20/17 23:52 98.4 67 18 135/67 (89) 95 07/20/17 20:52 99.4 75 18 142/71 (94) 95 07/20/17 20:00 98 07/20/17 17:57 20 07/20/17 15:38 22 07/20/17 15:19 98.9 77 20 140/80 (100) 97 07/20/17 11:23 98.1 72 16 174/85 (114) 97 I/O 07/20/17 07/20/17 07/20/17 07/21/17 07/21/17 07/21/17 07:00 15:00 23:00 07:00 15:00 23:00 Intake Total 480 ml 998 ml Output Total 650 ml Balance -170 ml 998 ml Intake Oral 480 ml IV Total 998 ml Output Urine Total 650 ml Laboratory Laboratory Tests Test 07/21/17 10:19 Urine Color YELLOW Urine Turbidity CLEAR Urine pH 7.0 Urine Specific [place] 1.022 Urine Protein 30 Urine Glucose (UA) NEG Urine Ketones 40 Urine Occult Blood NEG Urine Nitrite NEG Urine Bilirubin NEG Urine Urobilinogen LESS THAN 2.0 Urine Leukocyte Esterase NEG Urine RBC 1 Urine WBC 1 Urine Squamous Epithelial Cells <1 Urine Mucus FEW Microscopic Urinalysis Comment CULT NOT INDICATED Imaging Last Impressions Abdomen/Pelvis CT 07/20/17 0918 Signed Impressions: Service Date/Time: Thursday, July 20, 2017 16:16 - CONCLUSION: 1. Acute pancreatitis with peripancreatic fat stranding but without evidence for pseudocyst. Splenic vein patent. Jose Caruso MD Abdomen Ultrasound 07/18/17 0000 Signed Impressions: Service Date/Time: Tuesday, July 18, 2017 21:33 - CONCLUSION: Mild peripancreatic edema related to acute pancreatitis. No organized/drainable fluid seen. Otherwise within normal limits. No gallstones or ductal dilatation demonstrated. Alan Auguste MD Physical Exam HEENT: PERRL; normocephalic; atraumatic; no jaundice. Obese CHEST: CTA, without any rhonchi or wheezing CARDIAC: RRR ABDOMEN: taut, large,mild tympany,mild epigastric TTP improved; no hepatosplenomegaly; bowel sounds are present in all four quadrants. EXTREMITIES: No clubbing, cyanosis, or edema. SKIN: Normal; no rash; no jaundice. HAZARDOUS WASTE TECHNICIAN: alert and oriented (Viki Ohara) Assessment and Plan Assessment: (1) Acute pancreatitis ICD Codes: K85.90 - Acute pancreatitis without necrosis or infection, unspecified Status: Acute Plan Acute pancreatitis with elevated lipase 534. Pain initially was mid abdomen, gastric area left upper quadrant radiating into lower back. Getting minimal mild relief with ice pack on left lower back. This is his third attack in 5 years. Patient is a known diabetic and has been diet and exercise controlled. Denies any alcohol intake. No previous colonoscopy or endoscopy. Leukocytosis noted with WBC count 17.4 Constipation, acute on chronic. Does state he doesn't feel like he's been drinking enough fluids lately. Obesity mild, mildly elevated possibly secondary to stress 07/19/17 pain improving. lipase now WNL but WBC elevated 18k. afebrile. triglycerides not elevated. will adv diet and see how he does 07/20/17 continued abd pain, leukocytosis. constipated. afebrile. d/w family medicine, will get CT to further eval 07/21/17, continues to improve from abdominal pain, no nausea no vomiting, lipase level normal on 07/20/17 229, tolerating full liquid diet CT of the abdomen on 07/20/17 shows acute pancreatitis without evidence of pseudocyst. Abdominal ultrasound showed no gallstones or ductal dilatation Plan Diet full liquids, should be able to increase by p.m. if patient is tolerating heart healthy Pain management per attending daily Miralax IV fluids hydration Encouraged activity increase activity today Monitor labs Supportive care, possible DC within the next 24 hours if patient tolerates food. Patient was seen and examined per myself and Dr. Yusuf, note was written on his behalf (Viki Ohara) Physician Comments Agree with above plan as lined up, stable from GI point of view, please notify us if needed again. (Anshu Yusuf MD) Problem Qualifiers (1) Acute pancreatitis: Qualified Codes: K85.90 - Acute pancreatitis without necrosis or infection, unspecified Viki Ohara Jul 21, 2017 10:44 Anshu Yusuf MD Jul 21, 2017 22:38
[2017-07-21] MEDS ORDERED: HYDR-3580 PO (11:04)
--- NOTE | 2017-07-21 11:05 | HHI.DCPOC ---
Discharge Care Plan Diagnosis: (1) Acute pancreatitis (2) DM (diabetes mellitus) Goals to Promote Your Health * To prevent worsening of your condition and complications * To maintain your health at the optimal level Directions to Meet Your Goals Take your medications as prescribed Follow your dietary instruction Follow activity as directed Keep your appointments as scheduled Take your immunizations and boosters as scheduled If your symptoms worsen call your PCP, if no PCP go to Urgent Care Center or Emergency Room Smoking is Dangerous to Your Health. Avoid second hand smoke Call the 24-hour hour crisis hotline for domestic abuse at Isabel Santoro MD R1 Jul 21, 2017 11:05
[2017-07-21 11:38] LABS: BASOPHIL # 0.1 TH/MM3 (0-0.2); BASOPHIL % 0.6 % (0.0-2.0); EOSINOPHIL # 0.4 TH/MM3 (0-0.4); HEMATOCRIT 39.9 % (39.0-51.0); HEMOGLOBIN 13.5 GM/DL (13.0-17.0); LYMPH % 8.4 % (9.0-44.0); LYMPHOCYTE # 1.2 TH/MM3 (1.0-4.8); MEAN CELL VOLUME 88.1 FL (80.0-100.0); MEAN CORPUSCULAR HEMOGLOBIN 29.8 PG (27.0-34.0); MEAN CORPUSCULAR HGB CONC 33.8 % (32.0-36.0); MEAN PLATELET VOLUME 8.2 FL (7.0-11.0); MONO % 6.4 % (0.0-8.0); MONOCYTE # 0.9 TH/MM3 (0-0.9); NEUT % 81.6 % (16.0-70.0); PLATELET COUNT 222 TH/MM3 (150-450); RED BLOOD COUNT 4.52 MIL/MM3 (4.50-5.90); RED CELL DISTRIBUTION WIDTH 13.9 % (11.6-17.2); WHITE BLOOD COUNT 14.7 TH/MM3 (4.0-11.0)
[2017-07-21 11:58] LABS: CALCIUM 8.1 MG/DL (8.5-10.1); CREATININE 0.78 MG/DL (0.60-1.30)
--- NOTE | 2017-07-21 12:03 | HHI.FPPN ---
Subjective Remarks Afebrile overnight, blood pressures elevated at 135/67 - 155/84. Patient doing well today, states abdominal pain resolved after a large bowel movement. Feels more of an appetite, would like to go home today. (Isabel Santoro MD R1) Objective Vitals Vital Signs Date Time Temp Pulse Resp B/P (MAP) Pulse Ox O2 Delivery O2 Flow Rate FiO2 07/21/17 08:00 98.6 70 20 155/84 (107) 96 07/21/17 04:03 98.5 86 18 143/75 (97) 96 07/20/17 23:52 98.4 67 18 135/67 (89) 95 07/20/17 20:52 99.4 75 18 142/71 (94) 95 07/20/17 20:00 98 07/20/17 17:57 20 07/20/17 15:38 22 07/20/17 15:19 98.9 77 20 140/80 (100) 97 I/O 07/20/17 07/20/17 07/20/17 07/21/17 07/21/17 07/21/17 07:00 15:00 23:00 07:00 15:00 23:00 Intake Total 480 ml 998 ml Output Total 650 ml Balance -170 ml 998 ml Intake Oral 480 ml IV Total 998 ml Output Urine Total 650 ml (Isabel Santoro MD R1) Result Diagram: 07/21/17 1048 07/21/17 1048 Objective Remarks GENERAL: This is a pleasant male sitting up in bed, appears comfortable and is talkative. SKIN: Cool and dry. EYES: Extraocular motions intact. ENT: Airway patent. NECK: Trachea midline. CARDIOVASCULAR: Regular rate and rhythm without murmurs, gallops, or rubs. RESPIRATORY: Clear to auscultation. GASTROINTESTINAL: Abdomen soft, obese, slightly distended and tender to palpation; patient states he is sore. No guarding. MUSCULOSKELETAL: Extremities without pain or edema. NEUROLOGICAL: Awake and alert. No focal deficits. Motor and sensory grossly within normal limits. Normal speech. (Isabel Santoro MD R1) A/P Assessment and Plan Patient is a 47-year-old male with a history of diabetes mellitus 2 admitted to the hospital for acute pancreatitis per abdominal CT on admission. Lipase was mildly elevated. Placed on IVF, pain control with dilaudid, norco, and toradol IV, and given protonix for GI prophylaxis. Triglycerides were low, ultrasound showed no evidence of gallstones as etiology. This is the patient's third hospitalization for pancreatitis- GI consulted for further assessment and recommendations. Agreed w/management. With symptoms of abdominal pain and poor appetite continuing, along w/a white count remaining elevated, GI advised repeat CT of abdomen to observe for other possible sources of infection. Result was negative. UA was negative. Patient showed significant improvement on 07/21 after a bowel movement. It was explained to patient that he will need to continue full liquid diet on discharge and slow advance a diet as tolerated. He will also need to follow-up w/his PCP for management of DM2 (A1C 6.2 yesterday) and HTN and follow-up w/GI for further work-up (since this is his 3rd episode of pancreatitis). Etiology may be related to high triglycerides v autoimmunity v idiopathic. Patient told us today that one of his uncles had a similar hx of recurrent pancreatitis w/unknown etiology. Patient may need a repeat measure of his triglycerides, as the level obtained in the hospital was taken after patient had little PO intake for a few days. Discharge Planning D/C today (Isabel Santoro MD R1) Attending Attestation Patient seen and examined. Case reviewed and discussed with the resident team. Agree with plan of care as discussed with me and documented in the resident note. doing well and wishes to go home (Miroslava Lim MD) Problem List: (1) Acute pancreatitis ICD Codes: K85.90 - Acute pancreatitis without necrosis or infection, unspecified Status: Acute Plan: Unclear etiology, may consider autoimmune evaluation. Leukocytosis improved D/C IVF Con't liquid diet, advance PO as tolerated Triglyceride wnl Abdominal US normal Zofran PRN nausea Toradol IV PRN for pain, norco PRN pain, dilaudid for breakthrough. Protonix 40mg PO daily to cover for dyspepsia (2) DM (diabetes mellitus) ICD Codes: E11.9 - Type 2 diabetes mellitus without complications Plan: Low-dose sliding scale A1c 6.2 Monitor bedside glucose and daily fasting glucose. (3) HTN (hypertension) ICD Codes: I10 - Essential (primary) hypertension Plan: BP ranging 140s/90s HCTZ 25mg PO daily today Clonidine 0.1 mg every 6 hours when necessary to maintain blood pressure less than 180/100 Will need further management outpatient (4) FEN Plan: Fluids: PO Electrolytes: Supplement as needed Nutrition: Liquid diet DVT prophylaxis: Lovenox, SCDs (Isabel Santoro MD R1) Problem Qualifiers (1) Acute pancreatitis: Qualified Codes: K85.90 - Acute pancreatitis without necrosis or infection, unspecified (2) DM (diabetes mellitus): Qualified Codes: E11.9 - Type 2 diabetes mellitus without complications (3) HTN (hypertension): Qualified Codes: I10 - Essential (primary) hypertension Isabel Santoro MD R1 Jul 21, 2017 12:03 Miroslava Lim MD Jul 23, 2017 21:27
--- NOTE | 2017-07-21 12:04 | HHI.DS ---
Discharge Summary Admission Date Jul 18, 2017 at 12:26 Discharge Date: Jul 21, 2017 Admitting Diagnosis Acute pancreatitis (1) Acute pancreatitis Plan: Unclear etiology, autoimmune v idiopathic v high TGs Leukocytosis improved 14.7 (19.8) D/C IVF Con't liquid diet Triglyceride wnl Abdominal US normal Zofran PRN nausea Toradol IV PRN for pain, norco PRN pain, dilaudid for breakthrough. Protonix 40mg PO daily to cover for dyspepsia ICD Codes: K85.90 - Acute pancreatitis without necrosis or infection, unspecified Status: Acute (2) DM (diabetes mellitus) Plan: Low-dose sliding scale Monitor bedside glucose and daily fasting glucose. ICD Codes: E11.9 - Type 2 diabetes mellitus without complications (3) HTN (hypertension) Plan: HCTZ 25mg PO daily today Clonidine 0.1 mg every 6 hours when necessary to maintain blood pressure less than 180/100 ICD Codes: I10 - Essential (primary) hypertension Consultants GI Brief History Mr Fenton is a 47-year-old male with a history of diabetes mellitus (diet controlled) who presented for 8/10 cramping left upper abdominal pain, nausea, and vomiting. Abdominal pain and nausea began 2 days prior to admission after he says that he ate his morning meal while at work and thought he had food poisoning. Tried not to eat anything for the rest of the day to see if his symptoms would improve. Abdominal pain was worse with moving and better with applying ice. Later in the day he experienced vomiting of clear, yellow fluid - no food. Has experienced several more similar episodes of vomiting since then. Last episode of vomiting was before admission. Endorses fatigue. Rare alcohol use, last drink was on his birthday in June when he drinks 2 hurricanes. Usually eats a fatty diet. Has had 2 previous hospitalizations for pancreatitis. Last hospitalization was in February 2017. Etiology was undetermined, triglycerides were 36 (low) but he was fasting. PCP is Dr. Barroso in [place]. He reports feeling improved today compared to admission as far as his underlying pain. However he reports a bad night with pain. he was sleeping when we entered his room this am and is getting dilaudid for breakthrough pain. He can drink fluids but was given a diet today. CBC/BMP: 07/21/17 1048 07/21/17 1048 Significant Findings Laboratory Tests Test 07/18/17 13:39 07/19/17 05:50 07/19/17 15:47 07/20/17 06:20 Random Glucose 128 MG/DL (74-106) 108 MG/DL (74-106) Albumin 3.2 GM/DL (3.4-5.0) 2.6 GM/DL (3.4-5.0) Alkaline Phosphatase 42 U/L (45-117) Triglycerides Level 39 MG/DL (42-150) White Blood Count 18.6 TH/MM3 (4.0-11.0) 21.2 TH/MM3 (4.0-11.0) 19.8 TH/MM3 (4.0-11.0) Neutrophils (%) (Auto) 87.6 % (16.0-70.0) 83.5 % (16.0-70.0) Lymphocytes (%) (Auto) 5.5 % (9.0-44.0) 7.4 % (9.0-44.0) Neutrophils # (Auto) 16.3 TH/MM3 (1.8-7.7) 16.6 TH/MM3 (1.8-7.7) Monocytes # (Auto) 1.2 TH/MM3 (0-0.9) 1.7 TH/MM3 (0-0.9) Monocytes (%) (Auto) 8.4 % (0.0-8.0) Calcium Level 7.9 MG/DL (8.5-10.1) Aspartate Amino Transf (AST/SGOT) 14 U/L (15-37) Hemoglobin A1c 6.2 % (4.3-6.0) Test 07/21/17 10:19 07/21/17 10:48 Urine Protein 30 mg/dL (NEG-TRACE) Urine Ketones 40 mg/dL (NEG) Urine Mucus FEW /lpf (OCC) White Blood Count 14.7 TH/MM3 (4.0-11.0) Neutrophils (%) (Auto) 81.6 % (16.0-70.0) Lymphocytes (%) (Auto) 8.4 % (9.0-44.0) Neutrophils # (Auto) 12.0 TH/MM3 (1.8-7.7) Calcium Level 8.1 MG/DL (8.5-10.1) Potassium Level 3.4 MEQ/L (3.5-5.1) Imaging Last Impressions Abdomen/Pelvis CT 07/20/17 0918 Signed Impressions: Service Date/Time: Thursday, July 20, 2017 16:16 - CONCLUSION: 1. Acute pancreatitis with peripancreatic fat stranding but without evidence for pseudocyst. Splenic vein patent. Jose Caruso MD Abdomen Ultrasound 07/18/17 0000 Signed Impressions: Service Date/Time: Tuesday, July 18, 2017 21:33 - CONCLUSION: Mild peripancreatic edema related to acute pancreatitis. No organized/drainable fluid seen. Otherwise within normal limits. No gallstones or ductal dilatation demonstrated. Alan Auguste MD PE at Discharge GENERAL: This is a pleasant male laying flat in bed, appears tired and speaks normally. SKIN: Cool and dry. EYES: Extraocular motions intact. ENT: Throat without erythema, tonsillar hypertrophy or exudate. Uvula midline. Airway patent. NECK: Trachea midline. CARDIOVASCULAR: Regular rate and rhythm without murmurs, gallops, or rubs. RESPIRATORY: Clear to auscultation. GASTROINTESTINAL: Abdomen soft, obese, mildly distended, non- tender to palpation. No hepato-splenomegaly, or palpable masses. No guarding. MUSCULOSKELETAL: Extremities without clubbing, cyanosis, or edema. NEUROLOGICAL: Awake and alert. No focal deficits. Motor and sensory grossly within normal limits. Normal speech. Hospital Course Patient is a 47-year-old male with a history of diabetes mellitus 2 admitted to the hospital for acute pancreatitis per abdominal CT on admission. Lipase was mildly elevated. Placed on IVF, pain control with dilaudid, norco, and toradol IV, and given Protonix for GI prophylaxis. Triglycerides were low, ultrasound showed no evidence of gallstones as etiology. This is the patient's third hospitalization for pancreatitis- GI consulted for further assessment and recommendations. Agreed w/management. With symptoms of abdominal pain and poor appetite continuing, along w/a white count remaining elevated, GI advised repeat CT of abdomen to observe for other possible sources of infection. Result was negative. UA was negative. Patient showed significant improvement on 07/21 after a bowel movement. It was explained to patient that he will need to continue full liquid diet on discharge and slow advance a diet as tolerated. He will also need to follow-up w/his PCP for management of DM2 and HTN and follow- up w/GI for further work-up (since this is his 3rd episode of pancreatitis). Etiology may be related to high triglycerides v autoimmunity v idiopathic. Patient told us today that one of his uncles had a similar hx of recurrent pancreatitis w/unknown etiology. Patient may need a repeat measure of his triglycerides, as the level obtained in the hospital was taken after patient had little PO intake for a few days. Pt Condition on Discharge: Stable Discharge Disposition: Discharge Home Discharge Instructions DIET: Follow Instructions for: Diabetic Diet Activities you can perform: Regular-No Restrictions Follow up Referrals: Gastroenterology - 1 Week PCP Follow-up - 1 Week New Medications: Hydrocodone/Acetaminophen (Hydrocodone-Acetamin 7.5-325) 7.5 Mg-325 Mg Tablet 1 TAB PO TID PRN for PAIN SCALE 6 TO 10, #15 Isabel Santoro MD R1 Jul 21, 2017 12:04
== END 2017-07-21 12:54 | disposition home or self-care (01) | DRG 440 ==
LOC: NEPE 08:01 → NEDA 11:57 → OBSVTOIN 12:26 → NEDH 12:27 → NEDA 12:28 → NEPGCP 16:04
PROVIDERS: ADMIT Family Medicine; ATTEND Family Medicine
DX: K85.90 Acute pancreatitis without necrosis or infection, unspecified (principal); E11.65 Type 2 diabetes mellitus with hyperglycemia; I10 Essential (primary) hypertension; K59.00 Constipation, unspecified; E66.9 Obesity, unspecified; Z68.26 Body mass index [BMI] 26.0-26.9, adult
CPT/HCPCS: 74176; 74177; 76700; 80048; 80053; 81001; 82948; 83036; 83690; 84478; 85025; 85027; 85610; 85730; 96361; 96374; 96375; C9113; J1170; J1650; J1815; J1885; J2270; J2405; J7030; Q9963; Q9967